=== PATIENT | male | born 1955 | race Caucasian/White ===

== ENCOUNTER 2017-03-29 16:14 | Observation (INO) ==
[2017-03-29] MEDS ORDERED: Nitroglycerin 0.4 MG TAB.SUBL SL PRN ×2 (16:28→20:17)
[2017-03-29] MEDS ORDERED: Aspirin 325 MG TABLET PO ONE (16:28)
--- NOTE | 2017-03-29 16:31 | Emergency Department Note ---
Disposition Clinical Impression: Chest pain Qualifiers: Chest pain type: unspecified Qualified Code(s): R07.9 - Chest pain, unspecified Dyspnea Qualifiers: Dyspnea type: unspecified Qualified Code(s): R06.00 - Dyspnea, unspecified Disposition: Admitted As Inpatient Condition: Undetermined Referrals: [place] [Primary Care Provider] - Forms: ED Satisfaction Letter Time of Disposition: 18:24 Chest Pain HPI - General Chief Complaint: ED Chest Pain Stated Complaint: Chest Pressure Time Seen by Provider: 03/29/17 16:21 Source: patient, family Mode of arrival: ambulatory Limitations: no limitations Vital Signs Reviewed: Yes Nursing Notes Reviewed: Yes - History of Present Illness HPI Narrative: 61-year-old male with history of TX, roughly 1 year ago, with cardiac catheter at that time arrives to [facility] emergency department complaining of chest pressure and associated dyspnea. The patient is a started 3 days ago and is acutely worsened. The patient states the sort of feels like his previous TX but states it is a little bit different. The patient has not been medications meaning that he does not take any of his medications for hypertension, hyperlipidemia, diabetes, statin, antiplatelet. The patient denies any other complaints at this time. He is experiencing chest discomfort at this time. Pt complaint: chest pain Onset (ago): day(s) (3) Duration: intermittent, gradually worsening Onset: during rest Pain Location: substernal, left chest Severity: moderate Severity scale (1-10): 7 Quality: tightness, heaviness Pain Radiation: LUE Improves with: nothing Worsens with: nothing Treatments prior to arrival chest pain: none - Related Data On Oral Contraceptives: No Home Medications Medication Instructions Recorded Confirmed Aspirin Enteric Coated [Aspirin EC] 81 mg PO DAILY 12/11/15 02/01/17 Furosemide [Lasix] 40 mg PO BID 12/11/15 02/01/17 Gabapentin [Neurontin] 800 mg PO QID 12/11/15 02/01/17 Insulin ASPART [NovoLOG] 70 unit SQ BID 12/11/15 02/01/17 Insulin DETEMIR [Levemir] 70 unit SQ BID 12/11/15 02/01/17 Lovastatin [Mevacor] 20 mg PO HS 03/28/16 02/01/17 Nitroglycerin [Nitrostat] 0.4 mg SL Q5M PRN 03/28/16 02/01/17 Furosemide [Lasix] 40 mg PO DAILY 02/01/17 02/01/17 Lisinopril [Zestril] 10 mg PO DAILY 02/01/17 02/01/17 Metoprolol [Lopressor] 25 mg PO BID 02/01/17 02/01/17 Previous Rx's Medication Instructions Recorded Clopidogrel [Plavix] 75 mg PO DAILY #30 tablet 03/29/16 Allergies Allergy/AdvReac Type Severity Reaction Status Date / Time No Known Allergies Allergy Verified 02/01/17 08:57 All systems ED: reviewed and negative except as stated. Constitutional: Denies: fever, chills, weakness, weight change Eyes: Denies: eye pain, eye discharge, vision change ENT ED: Denies: ear pain, throat pain, dental pain, hearing loss, epistaxis, congestion, dysphagia Cardiovascular: Reports: chest pain, dyspnea on exertion. Denies: palpitations , edema, syncope Respiratory: Reports: dyspnea. Denies: cough, wheezes, hemoptysis, stridor Gastrointestinal: Denies: abdominal pain, nausea, vomiting, diarrhea, constipation, hematemesis, melena, hematochezia Musculoskeletal: Denies: back pain, neck pain, arthralgia, myalgia Neurological: Denies: headache, weakness, numbness, paresthesias, confusion, abnormal gait, vertigo Chest Pain PMH - Past Medical History Medical history: Reports: COPD, diabetes, GERD, hyperlipidemia, hypertension Surgical history: Reports: appendectomy, cholecystectomy, herniorrhaphy, knee replacement, orthopedic, other Psychiatric history: Reports: no psych history Prior Cardiac Testing/Procedures: Stenting (1 year ago, 03/28/16) - Social History Smoking Status: Current every day smoker Alcohol use: Reports: none Drug use: Reports: none Physical Exam - General Limitations: no limitations General appearance: alert, in no apparent distress - Head Head exam: atraumatic, normocephalic, normal inspection - ENT ENT exam: normal exam, normal oropharynx, mucous membranes moist - Neck Neck exam: Present: normal inspection, full ROM, trachea midline - Chest Chest inspection: Present: normal inspection, symmetric chest wall rise - Respiratory Respiratory exam: Present: normal lung sounds bilaterally - Cardiovascular Cardiovascular exam: Present: normal rhythm, tachycardia, normal heart sounds - Abdominal Exam Abdominal exam: Present: soft, Non-Tender. Absent: tenderness, distention, guarding, rebound, rigidity - Extremities Exam Extremities exam: Present: normal inspection - Skin Skin exam: Present: other (H and a small abrasions on his right upper extremity and left knee from previous lawnmower accident. No active bleeding, no obvious signs of infection.) Course - Reevaluation(s) Reevaluation #1: She received 3 sublingual edger glycerin which appeared to decrease the patient' s blood pressure to 90 systolic. The patient was given 1 fluid bolus which jesus his blood pressure into the mid 100 teens. The patient was also noted to be slightly hypoxic on room air C was placed on 2 L nasal cannula which jesus his oxygen saturation into the mid 90s. The patient was slightly altered during this occurrence quickly became alert and oriented once again area and the patient is resting comfortably at this time answering all questions appropriately. The patient had an elevated d-dimer so at this time we will perform a CTA of the patient's chest. Currently awaiting results. Patient demonstrates no acute EKG changes or elevated troponin. The patient will likely be admitted to the hospital for ACS rule out. Time: 18:08 Vital Signs Temperature 97.6 F 03/29/17 16:17 Pulse Rate 98 03/29/17 16:17 Respiratory Rate 18 03/29/17 16:17 Blood Pressure 139/78 03/29/17 16:17 O2 Sat by Pulse Oximetry 93 03/29/17 16:17 Temperature 97.6 F 03/29/17 16:17 Pulse Rate 91 03/29/17 17:15 Respiratory Rate 16 03/29/17 17:15 Blood Pressure 117/77 03/29/17 17:15 O2 Sat by Pulse Oximetry 96 03/29/17 17:15 Oxygen Delivery Oxygen Delivery Nasal Cannula Chest Pain - MDM Narrative Medical decision making narrative: Patient's workup here in the emergency department demonstrates a mild leukocytosis. Addition the patient had an elevated d-dimer which a CTA of the chest was negative. EKG demonstrates no acute findings. Troponin is negative. No other acute findings noted. The patient did receive 2 L of fluids after receiving nitroglycerin and having a systolic drop into the 90s. The patient was mildly altered during that transient episode of hypotension but quickly jesus back up to the 1 teens. In addition the patient is now alert and oriented 3 and answering all questions appropriate. The patient is resting comfortably at this time. Discussion with the patient about admission and he agrees to plan. We will admit the patient at this time. Ishaan Du NP, accepted patient for admission. Requested bilateral Doppler of lower extremity. We will order this at this time. We will send the patient up to the floor. - Medical Records Medical records reviewed: Yes I reviewed the patient's medical records. - Lab Data Lab results reviewed: Yes I reviewed the patient's lab results. Result diagrams: 03/29/17 16:33 03/29/17 16:33 Lab Results 03/29/17 03/29/17 03/29/17 Range/Units 16:33 16:33 16:33 WBC 16.5 H (4.3-11.1) K/mcL RBC 6.19 H (4.19-5.50) M/mcL Hgb 17.3 H (12.9-16.9) g/dL Hct 50.4 H (37.5-50.1) % MCV 81.4 L (83.0-100.0) fL MCH 27.9 L (28.0-33.3) pg MCHC 34.3 (31.6-35.5) g/dL RDW 13.5 (11.5-14.5) % Plt Count 442 H (140-400) K/mcL MPV 10.2 (9.4-12.4) fL Immature Gran % 1.9 (0-4) % Seg Neutrophils % 74.4 % Lymphocytes % 13.0 % Monocytes % 6.7 % Eosinophils % 2.8 % Basophils % 1.2 % Neutrophils # 12.3 H (1.6-8.9) K/mcL Lymphocytes # 2.1 (0.6-4.6) K/mcL Monocytes # 1.1 (0.0-1.3) K/mcL Eosinophils # 0.5 (0.0-0.6) K/mcL Basophils # 0.2 (0.0-0.2) K/mcL D-Dimer 1047 H (0-500) ng/mLFEU Sodium 137 (136-145) mEq/L Potassium 3.9 (3.5-4.5) mEq/L Chloride 103 (98-109) mEq/L Carbon Dioxide 23 (19-29) mEq/L BUN 15 (8-26) mg/dL Creatinine 0.98 (0.72-1.25) mg/dL Est GFR ( Amer) > 60 (> 60) Est GFR (Non-Af Amer) > 60 (> 60) BUN/Creatinine Ratio 15 (6-26) Glucose 165 H (70-99) mg/dL Calculated Osmolality 289 (280-300) Calcium 9.6 (8.6-10.8) mg/dL Troponin I (0-0.03) ng/mL 03/29/17 Range/Units 16:33 WBC (4.3-11.1) K/mcL RBC (4.19-5.50) M/mcL Hgb (12.9-16.9) g/dL Hct (37.5-50.1) % MCV (83.0-100.0) fL MCH (28.0-33.3) pg MCHC (31.6-35.5) g/dL RDW (11.5-14.5) % Plt Count (140-400) K/mcL MPV (9.4-12.4) fL Immature Gran % (0-4) % Seg Neutrophils % % Lymphocytes % % Monocytes % % Eosinophils % % Basophils % % Neutrophils # (1.6-8.9) K/mcL Lymphocytes # (0.6-4.6) K/mcL Monocytes # (0.0-1.3) K/mcL Eosinophils # (0.0-0.6) K/mcL Basophils # (0.0-0.2) K/mcL D-Dimer (0-500) ng/mLFEU Sodium (136-145) mEq/L Potassium (3.5-4.5) mEq/L Chloride (98-109) mEq/L Carbon Dioxide (19-29) mEq/L BUN (8-26) mg/dL Creatinine (0.72-1.25) mg/dL Est GFR ( Amer) (> 60) Est GFR (Non-Af Amer) (> 60) BUN/Creatinine Ratio (6-26) Glucose (70-99) mg/dL Calculated Osmolality (280-300) Calcium (8.6-10.8) mg/dL Troponin I 0.00 (0-0.03) ng/mL - Radiology Data Radiology results reviewed: Yes I reviewed the patient's radiology results. - EKG Data EKG attestation: Yes I reviewed and interpreted this EKG. EKG results narrative: Heart rate 99 bpm. WA interval 159 ms. QTC 394 ms. Normal axis. Normal sinus rhythm. No ST elevation or ST depression noted. EKG similar appearance to EKG from 04/27/2016.
[2017-03-29 16:43] LABS: Basophils # 0.2 K/mcL (0.0-0.2); Basophils % 1.2 %; Eosinophils # 0.5 K/mcL (0.0-0.6); Eosinophils % 2.8 %; Hematocrit 50.4 % (37.5-50.1); Hemoglobin 17.3 g/dL (12.9-16.9); Immature Granulocytes % 1.9 % (0-4); Lymphocytes # 2.1 K/mcL (0.6-4.6); Mean Corpuscular HGB Conc 34.3 g/dL (31.6-35.5); Mean Corpuscular Hemoglobin 27.9 pg (28.0-33.3); Mean Corpuscular Volume 81.4 fL (83.0-100.0); Mean Platelet Volume 10.2 fL (9.4-12.4); Monocytes # 1.1 K/mcL (0.0-1.3); Monocytes % 6.7 %; Neutrophils # 12.3 K/mcL (1.6-8.9); Platelet Count 442 K/mcL (140-400); Red Blood Count 6.19 M/mcL (4.19-5.50); Red Cell Distribution Width 13.5 % (11.5-14.5); Segmented Neutrophils % 74.4 %
[2017-03-29] MEDS ORDERED: 0.9 % Sodium Chloride 1,000 ML IVC ONE ×2 (16:51→17:35)
[2017-03-29] MEDS ORDERED: 0.9 % Sodium Chloride 1,000 ML ONE (16:52)
[2017-03-29 17:03] LABS: BUN/Creatinine Ratio 15 (6-26); Blood Urea Nitrogen 15 mg/dL (8-26); Calcium 9.6 mg/dL (8.6-10.8); Carbon Dioxide 23 mEq/L (19-29); Chloride 103 mEq/L (98-109); Glucose 165 mg/dL (70-99); Osmolality,Calculated 289 (280-300); Potassium 3.9 mEq/L (3.5-4.5); Sodium 137 mEq/L (136-145); eGFR For African Americans > 60 (> 60); eGFR For Non-African Americans > 60 (> 60)
--- NOTE | 2017-03-29 17:06 | Emergency Department Note ---
START Narrative - START START: I examined this patient and my medical decision-making was reviewed with the Resident Physician. I agree with the documented findings, disposition and treatment plan as described except to the extent set forth below. 61-year-old male presents emergency room for chest pressure. Onset 3 days ago. Worse today. Admits to some shortness of breath. Positive risk factors. Denies history of CHF. Denies any significant new leg swelling. Patient received 1 nitroglycerin and became hypotensive. His blood pressure went to the 80s systolic. We have ordered some IV fluid bolus. EKG was normal sinus rhythm. No signs of ischemia. Will workup from an ACS standpoint.
[2017-03-29] MEDS ORDERED: Acetaminophen 325 MG TABLET PO PRN (20:02)
[2017-03-29] MEDS ORDERED: *HR* HYDROcodone/Acet 5/325 mg TABLET PO PRN (20:02)
[2017-03-29] MEDS ORDERED: Naloxone 0.4 MG/ML INJ IVP PRN (20:02)
[2017-03-29] MEDS ORDERED: Ondansetron 4 MG/2 ML VIAL IVP PRN (20:02)
[2017-03-29] MEDS ORDERED: *HR* Morphine 2 MG/ML SYRINGE IVP PRN (20:02)
[2017-03-29] MEDS ORDERED: Benzonatate 100 MG CAPSULE PO PRN (20:12)
[2017-03-29] MEDS ORDERED: *HR* Dextrose 50 % in Water (Syg) 50 ML SYRINGE IVP PRN (20:27)
[2017-03-29] MEDS ORDERED: D5% in Water 1,000 ML IVC PRN (20:27)
[2017-03-29] MEDS ORDERED: Dextrose Gel 15 GM PO PRN ×2 (20:27)
--- NOTE | 2017-03-29 20:33 | Internal Med History&Physical ---
<RuthseayueIshaan cortez - Last Filed: 03/29/17 21:14> Date of Encounter: 03/29/17 Time of Encounter: 19:00 Assessment and Plan (1) Chest pain Current visit: Yes Status: Acute Patient reports acute chest pain for the past three days that is centralized in his chest, a constant pressure, and is worse with deep inspiration. 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 No recent cardiac work-up. initial troponin 0.00. EKG today shows normal sinus rhythm and normal ECG which is unchanged from ECG of 03/28/16. Continuous cardiac telemetry. Trend troponin x2. Echocardiogram ordered. Patient NPO @ midnight for nuclear pharm stress test tomorrow. Nitroglycerin PRN. Continue patient's PO Plavix and 81 mg aspirin therapy daily. Consider cardiology consult based on echo and stress results. Qualifiers: Chest pain type: unspecified Qualified Code(s): R07.9 - Chest pain, unspecified (2) COPD exacerbation Current visit: Yes Status: Acute Patient presents with SOB w/wo exertion and hx of tobacco abuse smoking 1.5 PPD. Patient reports chest pain that is worse with inspiration. Bilateral wheezes on auscultation and productive cough. Patient reports home O2 use. IVPB azithromycin 500 mg daily for infection coverage. Supplemental O2 w/titration if SpO2 <92% and continuous SpO2 monitoring. DuoNebs Q4 scheduled. Tessalon 100 mg TID PO. Solumedrol 40 mg IVP BID. Monitor patient's respiratory status and VS. Falls/safety precautions d/t SOB. (3) Leukocytosis Current visit: Yes Status: Acute WBC of 16.5 on admission. Patient asymtomatic and afebrile except for productive cough with report of green sputum. IVPB azithromycin 500 mg daily ordered for infection coverage. Monitor f/u labs. Sputum culture and blood cultures x2 ordered. Urine culture ordered. Qualifiers: Leukocytosis type: unspecified Qualified Code(s): D72.829 - Elevated white blood cell count, unspecified (4) Dyspnea Current visit: Yes Status: Acute Presents with acute dyspnea w/wo exertion. Reports pain on inspiration and cough with green sputum production. Supplemental O2 w/titration if SpO2 <92%. Continuous SpO2 monitoring. DuoNebs Q4 scheduled. Tessalon 100 mg TID for cough. Sputum culture ordered. Solumedrol 40 mg IVP BID. Falls/safety precautions. Qualifiers: Dyspnea type: unspecified Qualified Code(s): R06.00 - Dyspnea, unspecified (5) Tobacco abuse counseling Current visit: Yes Status: Acute Patient counseled >10 minutes regarding the dangers of continued tobacco abuse on health status as well as successful measures for quitting. Reports smoking 1.5 PPD. Patient declined nicotine patch at this time. (6) GERD (gastroesophageal reflux disease) Current visit: Yes Status: Chronic Hx of chronic esophageal reflux disease. Patient reports using OTC products. IVP Zofran Q6 PRN for nausea. IVP Protonix 40 mg BID ordered. Qualifiers: Esophagitis presence: esophagitis presence not specified Qualified Code(s) : K21.9 - Gastro-esophageal reflux disease without esophagitis (7) Diabetes Current visit: Yes Status: Chronic Hx of chronic diabetes with insulin dependency. Will continue patient's BID insulin and administer low-dose correction insulin sliding scale with hypoglycemic protocol. A1c ordered in a.m. labs. Diabetic diet. Diabetes education consult ordered. Qualifiers: Diabetes mellitus type: type 2 Diabetes mellitus complication status: with unspecified complications Diabetes mellitus extermination supervisor insulin use: with extermination supervisor use Qualified Code(s): E11.8 - Type 2 diabetes mellitus with unspecified complications; Z79.4 - extermination supervisor (current) use of insulin (8) HLD (hyperlipidemia) Current visit: Yes Status: Chronic Hx of chronic HLD. Lipid panel ordered in a.m. labs. Continue patient's lovastatin. Qualifiers: Hyperlipidemia type: pure hypercholesterolemia Qualified Code(s): E78.00 - Pure hypercholesterolemia, unspecified; E78.0 - Pure hypercholesterolemia (9) HTN (hypertension) Current visit: Yes Status: Chronic Monitor patient and VS. Continue lisinopril and Lopressor. Qualifiers: Hypertension type: essential hypertension Qualified Code(s): I10 - Essential (primary) hypertension (10) CAD (coronary artery disease) Current visit: Yes Status: Chronic History of CAD and VT in 2016 with placement of 1 stent in the widowmaker. Will continue patient's lisinopril, Lopressor, lovastatin. Continuous cardiac telemetry. Continue 81 mg aspirin and Plavix. Qualifiers: Coronary Disease-Associated Artery/Lesion type: [place] artery [place] vs. transplanted heart: [place] heart Associated angina: without angina Qualified Code(s): I25.10 - Atherosclerotic heart disease of [place] coronary artery without angina pectoris (11) DVT prophylaxis Current visit: Yes Status: Acute Heparin 5,000 units SQ Q8 ordered. Continue patient's 81 mg aspirin therapy and Plavix. Internal Medicine - H&P: HPI Chief complaint: Chest pain Admitted From: Emergency Dept Plans for Post Hospital Care: Home History of present illness: Mr. Greco is a 61 year old male with medical history COPD, diabetes with insulin dependency, GERD, hyperlipidemia, hypertension, and previous VT in 2016 with placement of one stent presents from the ED with chief complaint of chest pain that he reports has been occurring for the past 3 days and he describes as constant pressure in his central chest which becomes worse with inspiration. Patient also reports dizziness and shortness of breath but denies recent illness , nausea, vomiting, fever, chills, headache, changes in vision, abdominal pain, diarrhea, constipation, unusual bleeding, weakness, numbness, tingling, presyncope, or syncope. On admission, patient's vital signs include temperature 97.6F, heart rate 90 bpm, respiratory rate of 18, BP of 139/78, SPO2 93% on 2 L via nasal cannula. Pertinent abnormal labs include WBC of 16.5 , Hgb of 17.3, HCT 50.4, platelet count of 442, d-dimer 1047, and glucose of 165. Initial troponin 0.00. Initial concern was for possible PE due to patient 's shortness of breath and chest pain, however CTA of the chest today shows no acute pulmonary emboli, mild atherosclerosis with no aortic dissection, and no acute pulmonary process. 1-View CXR shows no acute pulmonary process. Upon assessment, patient is alert and oriented 3 and states he has mild chest discomfort with inspiration. Heart rate is RRR and lungs have bilateral wheezes on auscultation. Patient is hemodynamically stable and reports mild chest distress and dyspnea. Patient also has cough but he states produces green sputum. Information taken from patient, family, chart review, and previous medical records. Mr. greco is at high risk for further morbidity based on current symptoms of chest pain, elevated WBC; risk factors of previous VT, HLD, and HTN; and history and will be replaced as observation status. Time spent with patient and his family greater than 40 minutes. Past Med Surg Social Fam HX - Past Medical History Source: patient, old records reviewed, obtained from family Medical history: COPD, diabetes, GERD, hyperlipidemia, hypertension Psychiatric history: no psych history - Past Surgical History Surgical History: appendectomy, cholecystectomy, herniorrhaphy, knee replacement , orthopedic, other - Social History Smoking Status: Current every day smoker Packs per day: 1.5 PPD Smokeless Tobacco Status: No Alcohol use: none Drug use: none Current living situation: Home, With Family Activity Level: Independent ambulation Recent Out of Country Travel Within the Last 8 Weeks: No Exposure or Possible Exposure to Illness During Travel: No - Family History Father Race: Family Member Ethnicity: Non- Living Status: Age at : 82 Cause of : CAD Hx Family Cardiac Disorders: Yes (HTN, CAD) Hx Family Endocrine Disorder: Yes (DM) Mother Race: Family Member Ethnicity: Non- Living Status: Age at : 50 Cause of : Brain tumor Hx Family Cancer: Yes (Brain tumor) Brother History Unknown: Yes Race: Family Member Ethnicity: Non- Living Status: Still Living Sister History Unknown: Yes Race: Family Member Ethnicity: Non- Living Status: Still Living Internal Medicine - H&P: Meds Aspirin Enteric Coated [Aspirin EC] 81 mg PO DAILY 12/11/15 [History] Gabapentin [Neurontin] 800 mg PO QID 12/11/15 [History] Insulin ASPART [NovoLOG] 70 unit SQ BID 12/11/15 [History] Insulin DETEMIR [Levemir] 70 unit SQ BID 12/11/15 [History] Lovastatin [Mevacor] 20 mg PO HS 03/28/16 [History] Nitroglycerin [Nitrostat] 0.4 mg SL Q5M PRN 03/28/16 [History] Clopidogrel [Plavix] 75 mg PO DAILY #30 tablet 03/29/16 [Rx] Furosemide [Lasix] 40 mg PO DAILY 02/01/17 [History] Lisinopril [Zestril] 10 mg PO DAILY 02/01/17 [History] Metoprolol [Lopressor] 25 mg PO BID 02/01/17 [History] Cyanocobalamin (Vitamin B-12) [Vitamin B12] 1,000 mcg PO DAILY 03/29/17 [History ] [place]-3/Dha/Epa/Fish Oil [Fish Oil 1,000 mg Softgel] 1,000 mg PO DAILY 03/29/17 [History] 3 Allergy/AdvReac Type Severity Reaction Status Date / Time No Known Allergies Allergy Verified 02/01/17 08:57 All Systems PM: A 10-system review of systems was performed and is negative for pertinent findings except as documented above in the HPI. - Constitutional Constitutional: as per HPI, fatigue, weight loss, no chills, no fever(s), no night sweats Additional comments: Patient reports unintended weight loss of 32 pounds over the past 1-2 months with no change in appetite or eating habits. - EENT Eyes: no change in vision, no discharge, no pain, no photophobia Ears: no ear discharge, no ear pain, no tinnitus Nose, mouth and throat: no dysphagia, no nasal discharge, no neck pain, no sore throat - Breasts Breasts: as per HPI - Cardiovascular Cardiovascular ROS IM: as per HPI, chest pain, dyspnea, dyspnea on exertion, other (Dizziness) - Respiratory Respiratory: as per HPI, cough, dyspnea, dyspnea on exertion, wheezing, pain on inspiration, change in phlegm color - Gastrointestinal Gastrointestinal: no abdominal pain, no diarrhea, no hematemesis, no hematochezia, no melena, no nausea, no vomiting - Genitourinary Genitourinary ROS male: as per HPI - Musculoskeletal Musculoskeletal ROS IM: no numbness, no tingling - Integumentary Integumentary IM: no rash, no unusual bruising - Neurological Neurological ROS: no confusion, no convulsions, no focal weakness, no numbness, no tingling, no tremor(s) - Psychiatric Psychiatric: as per HPI - Endocrine Endocrine IM: as per HPI - Hematologic/Lymphatic Hematologic/Lymphatic: no easy bruising - Allergic/Immunologic Allergic/Immunologic: as per HPI - Constitutional Vitals: Temp Pulse Resp BP Pulse Ox 98.0 F 87 16 117/72 95 03/29/17 20:12 03/29/17 20:12 03/29/17 20:12 03/29/17 20:12 03/29/17 20:12 General appearance: Present: cooperative, mild distress, A&O X 3, morbidly obese , pleasant, answers questions appropriately - Head Head exam: Present: atraumatic, normocephalic - Eye Eye exam: Present: PERRL, conjuntiva pink, sclera anicteric Pupils: Present: PERRL - ENT ENT exam: Present: normal exam, normal external ear exam - Neck Neck exam general surgery: Present: normal inspection, supple, trachea midline. Absent: lymphadenopathy - Respiratory Respiratory exam: Present: accessory muscle use, wheezes - Cardiovascular Cardiovascular exam: Present: RRR, +S1, +S2. Absent: diastolic murmur, gallop, rubs, systolic murmur - GI/Abdominal GI/Abdominal exam: Present: normal bowel sounds, soft, no peritoneal signs. Absent: distended, tenderness - Rectal Rectal exam: Present: deferred - Additional comments: exam deferred. - Extremities Exam Extremities exam: Present: warm, radial pulses palpable and symmetrical. Absent : calf tenderness, cyanotic, pedal edema - Back Exam Back exam: Present: normal inspection - Neurological Exam Neurological exam: Present: CN II-XII intact, oriented X3, no focal deficits. Absent: pronater drift, facial droop, speech deficit - Psychiatric Psychiatric exam: Present: normal affect, normal mood - Skin Skin exam: Present: dry, intact Internal Med - H&P Results - Labs CBC & Chem 7: 03/29/17 16:33 03/29/17 16:33 - EKG Data EKG shows normal: sinus rhythm Rate: normal - EKG Data Prior EKG available for review: yes When compared to previous EKG: there is no significant change Interpretation IM: normal EKG EKG comments: 03/29/17 20:44 EKG dated 03/28/16 shows sinus rhythm. EKG dated 03/29/17 shows sinus rhythm and normal ECG. - Diagnostic Studies Chest x-ray Additional comments: Impressions Chest X-Ray 03/29/17 16:26 IMPRESSION: No acute pulmonary process. D/ / Man Thrasher / Man Thrasher Interpreting Provider: Man Thrasher Chest CTA 03/29/17 17:35 IMPRESSION: 1. No acute pulmonary emboli. 2. Mild atherosclerosis with no aortic dissection. 3. No acute pulmonary process. D/ / 03/29/2017 18:06:08 Twan Reddy MD / bobby Interpreting Provider: Twan Reddy MD Other Images Additional comments: Impressions Chest CTA 03/29/17 17:35 IMPRESSION: 1. No acute pulmonary emboli. 2. Mild atherosclerosis with no aortic dissection. 3. No acute pulmonary process. D/ / 03/29/2017 18:06:08 Twan Reddy MD / bobby Interpreting Provider: Twan Reddy MD <Margi Caldwell - Last Filed: 03/29/17 21:22> Date of Encounter: 03/29/17 Internal Medicine - H&P: HPI History of present illness: Mr. Greco is a 61 year old male All Systems PM: A 10-system review of systems was performed and is negative for pertinent findings except as documented above in the HPI. - Constitutional Vitals: Temp Pulse Resp BP Pulse Ox 98.0 F 87 17 117/72 94 03/29/17 20:12 03/29/17 20:12 03/29/17 20:37 03/29/17 20:12 03/29/17 20:37 Internal Med - H&P Results - Labs CBC & Chem 7: 03/29/17 16:33 03/29/17 16:33 - Attending Attestation I have personally performed a face to face evaluation on this patient. I have reviewed and agree with the care plan. History and Exam by me shows: 61-year-old gentleman who presents with chest pain evaluation. Also has very very mild COPD exacerbation. He smokes a pack and a half of cigarettes per day, uses room air at baseline, uses CPAP daily at bedtime for sleep apnea. He presents with 3 day history of worsening chest pressure described as a break on his chest. I risk factors include diabetes history of heart attack a year ago and had stent placement. Seen by Dr. Jackson. EKG reviewed personally with normal sinus rhythm rate of 99 CT/CT angio chest IMPRESSION: 1. No acute pulmonary emboli. 2. Mild atherosclerosis with no aortic dissection. 3. No acute pulmonary process. General - AAO x 3 Psych - Appropriate affect/speech. No agitation Eyes - [place]. Eye lids intact. No scleral icterus Heart - Sinus. RRR. S1 and S2 present. No added HS/murmurs appreciated. No elevated JVD appreciated. Lung - Adequate air entry b/l, very scant wheeze, no crackles GI - Soft, non-tender. No hepatosplenomegaly/ascites. BS+ - No CVA/suprapubic tenderness or palpable bladder distension Skin - Intact. No rash/petechiae/ecchymosis. Warm extremities Assessment and plan Given high risk clinic history and clinical presentation with plan for a stress test Empiric treatment for mild acute bronchitis. Short course pulse steroids, azithro, duonebs. Anticipate ability to de-escalate quickly
[2017-03-29] MEDS: Ipratropium/Albuterol Neb 3 ML IH SCH ×2 (20:37→23:39)
[2017-03-29] MEDS ORDERED: INSULIN ASPART 70 UNIT SQ SCH (21:00)
[2017-03-29] MEDS ORDERED: Insulin LISPRO 300 UNITS/3 ML VIAL SQ SCH (21:00)
[2017-03-29] MEDS: Insulin DETEMIR 100 UNIT/ML X5UNITS SQ SCH (22:10)
[2017-03-29] MEDS: Azithromycin 500 MG in D5% in Water 250 ML IVPB SCH (22:11)
[2017-03-29] MEDS: Gabapentin 400 MG CAPSULE PO SCH (22:12)
[2017-03-29] MEDS: Pantoprazole 40 MG VIAL IVP SCH (22:12)
[2017-03-29] MEDS: *HR* Heparin 5,000 UNIT/ML VIAL SQ SCH (22:12)
[2017-03-30] MEDS: Ipratropium/Albuterol Neb 3 ML IH SCH ×6 (03:04→23:11)
[2017-03-30 03:15] LABS: Bilirubin,Urine Negative (Negative); Blood,Urine Negative (Negative); Clarity,Urine Clear (Clear); Color,Urine Yellow (Yellow); Glucose,Urine (UA) >=1000 mg/dL (Normal); Ketones,Urine Negative (Negative); Leukocyte Esterase,Urine Negative (Negative); Nitrite,Urine Negative (Negative); Protein,Urine Negative (Neg-Trace); Specific Gravity,Urine > 1.030 (1.010-1.025); Urobilinogen,Urine Normal (Normal)
[2017-03-30 04:58] LABS: Basophils # 0.1 K/mcL (0.0-0.2); Basophils % 1.2 %; Eosinophils # 0.4 K/mcL (0.0-0.6); Eosinophils % 3.5 %; Hematocrit 43.9 % (37.5-50.1); Immature Granulocytes % 1.5 % (0-4); Lymphocytes # 2.1 K/mcL (0.6-4.6); Lymphocytes % 17.8 %; Mean Corpuscular HGB Conc 34.4 g/dL (31.6-35.5); Mean Corpuscular Hemoglobin 28.2 pg (28.0-33.3); Mean Corpuscular Volume 81.9 fL (83.0-100.0); Mean Platelet Volume 10.4 fL (9.4-12.4); Monocytes # 0.7 K/mcL (0.0-1.3); Monocytes % 6.1 %; Neutrophils # 8.2 K/mcL (1.6-8.9); Platelet Count 351 K/mcL (140-400); Red Blood Count 5.36 M/mcL (4.19-5.50); Red Cell Distribution Width 13.6 % (11.5-14.5); Segmented Neutrophils % 69.9 %
[2017-03-30 05:03] LABS: Prothrombin Time 10.9 Seconds (9.4-12.1)
[2017-03-30 05:04] LABS: Hemoglobin 15.1 g/dL (12.9-16.9)
[2017-03-30 05:06] LABS: Activated Partial Thrombo Time 28.1 Seconds (26.0-36.0)
[2017-03-30 05:11] LABS: Hemoglobin A1C 10.8 %
[2017-03-30 05:21] LABS: Alanine Aminotransferase 20 Units/L (0-55); Albumin 3.1 g/dL (3.5-5.0); Alkaline Phosphatase 103 Units/L (38-126); Aspartate Amino Transferase 13 Units/L (5-34); BUN/Creatinine Ratio 18 (6-26); Bilirubin,Total 0.2 mg/dL (0.2-1.2); Blood Urea Nitrogen 15 mg/dL (8-26); Calcium 8.6 mg/dL (8.6-10.8); Carbon Dioxide 20 mEq/L (19-29); Chloride 107 mEq/L (98-109); Chol/HDL Ratio 8.2 (0-4.9); Cholesterol 163 mg/dL (< 200); Glucose 300 mg/dL (70-99); HDL Cholesterol 20 mg/dL (40-59); Magnesium 1.6 mg/dL (1.6-2.6); Osmolality,Calculated 296 (280-300); Potassium 3.9 mEq/L (3.5-4.5); Sodium 137 mEq/L (136-145); Total Protein 6.1 g/dL (6.0-8.3); Triglycerides 489 mg/dL (< 150); eGFR For African Americans > 60 (> 60); eGFR For Non-African Americans > 60 (> 60)
[2017-03-30] MEDS: *HR* Heparin 5,000 UNIT/ML VIAL SQ SCH ×3 (05:55→22:51)
[2017-03-30] MEDS: MethylPREDNISolone 40 MG/ML VIAL IVP SCH ×2 (05:55→18:13)
[2017-03-30] MEDS ORDERED: Regadenoson 0.4 MG/5 ML SYRINGE IVP ONE (06:15)
[2017-03-30] MEDS ORDERED: Perflutren Lipid Microsphere 1.3 ML in 0.9 % Sodium Chloride 8.7 ML IVP ONE (06:39)
[2017-03-30] MEDS: Pantoprazole 40 MG VIAL IVP SCH ×2 (10:18→20:49)
[2017-03-30] MEDS: Gabapentin 400 MG CAPSULE PO SCH ×2 (10:18→12:06)
[2017-03-30] MEDS: Furosemide 40 MG TABLET PO SCH (10:18)
[2017-03-30] MEDS: Aspirin Enteric Coated 81 MG Tablet PO SCH (10:18)
[2017-03-30] MEDS: Cyanocobalamin (B-12) 1,000 MCG TABLET PO SCH (10:18)
[2017-03-30] MEDS: Insulin LISPRO 300 UNITS/3 ML VIAL SQ SCH ×3 (10:18→18:09)
[2017-03-30] MEDS: Insulin DETEMIR 100 UNIT/ML X5UNITS SQ SCH ×2 (10:40→22:52)
--- NOTE | 2017-03-30 14:29 | Venous Imaging Report ---
LE Venous Duplex Patient Name:Rafa De Paz Order Number:[id number] Procedure Date:03/29/2017 Date:8Age:61 yrs Gender:Male Location:[facility] Room #: [id number] Cement Car Dumper:Acacia Vines RDCS, RVT Referring MD:DO Humberto Qiu MD:Pato Ramsey MD , FACS Primary Indications:Concern for DVT Secondary Indications: Risk Factors Yes/No Anticoagulants Yes Impressions: Bilateral lower extremity: normal superficial and deep exam. Findings Venous Duplex Results: Right: Venous imaging of the lower extremity reveals full patency and normal vessel compressibility of the right distal iliac, right common femoral, right superficial femoral, right popliteal, right posterior tibial, right peroneal, right great saphenous and right lesser saphenous. Doppler signals in the evaluated veins were normal. Left: Venous imaging of the lower extremity reveals full patency and normal vessel compressibility of the left distal iliac, left common femoral, left superficial femoral, left popliteal, left posterior tibial, left peroneal, left great saphenous and left lesser saphenous. Doppler signals in the evaluated veins were normal. Prior Study: No prior study available for comparison. Lower Extremity Venous Duplex Side Vein Compress Spontaneous Flow Augment Diameter (cm) Depth (cm) Right Distal Iliac Normal Yes Phasic Yes Right Common Femoral Normal Yes Phasic Yes Right Superficial Femoral Normal Yes Phasic Yes Right Popliteal Normal Yes Phasic Yes Right Posterior Tibial Normal Yes Phasic Yes Right Peroneal Normal Yes Phasic Yes Right Great Saphenous Normal Yes Phasic Yes Right Lesser Saphenous Normal Yes Phasic Yes Left Distal Iliac Normal Yes Phasic Yes Left Common Femoral Normal Yes Phasic Yes Left Superficial Femoral Normal Yes Phasic Yes Left Popliteal Normal Yes Phasic Yes Left Posterior Tibial Normal Yes Phasic Yes Left Peroneal Normal Yes Phasic Yes Left Great Saphenous Normal Yes Phasic Yes Left Lesser Saphenous Normal Yes Phasic Yes Updated by Pato Ramsey MD, FACS on 03/30/2017 2:23:51 PM Pato Ramsey MD electronically signed on 03/30/2017 2:24:08 PM with status of Final
--- NOTE | 2017-03-30 17:30 | Internal Med Progress Note ---
Date of Encounter: 03/30/17 Time of Encounter: 15:45 - Assessment and plan (1) Chest pain Current Visit: Yes Status: Acute Assessment and plan: Patient reports acute chest pain for 3 days prior to arrival. He reports it is midsternal constant pressure, worse with deep inspiration. He also reports productive cough with green/yellow sputum. Chest x-ray is negative. Chest is CTA was negative for acute PE. Noted was mild atherosclerosis with with no aortic dissection and no acute pulmonary process. Patient had venous Dopplers of both lower extremities that were normal. Echocardiogram showed LVEF of 55% with normal systolic function, normal diastolic function with no significant valvular dysfunction. Cardiac stress test is not available at this time. Patient is receiving Solu-Medrol, Tessalon Perles, breathing treatments, and Tessalon Perles. I believe that the chest pain is primarily due to COPD exacerbation. Continue telemetry Continue pulse ox Continue O2 as needed, titrate to maintain sats greater than 92%. Continue IV antibiotics and steroids. Stress test results are pending, consider cardiology consult based on results. Qualifiers: Chest pain type: unspecified Qualified Code(s): R07.9 - Chest pain, unspecified (2) CAD (coronary artery disease) Current Visit: Yes Status: Chronic Assessment and plan: Patient denies chest pain at this time. Continue aspirin, Plavix, beta ruben. Continue telemetry. Qualifiers: Coronary Disease-Associated Artery/Lesion type: [place] artery [place] vs. transplanted heart: [place] heart Associated angina: without angina Qualified Code(s): I25.10 - Atherosclerotic heart disease of [place] coronary artery without angina pectoris (3) GERD (gastroesophageal reflux disease) Current Visit: Yes Status: Chronic Assessment and plan: Chronic. Patient is currently getting Protonix IV. He does not have any PPI or other GERD medication on his home medication list. Qualifiers: Esophagitis presence: esophagitis presence not specified Qualified Code(s) : K21.9 - Gastro-esophageal reflux disease without esophagitis (4) Leukocytosis Current Visit: Yes Status: Acute Assessment and plan: Improving. 11.7. Continue to monitor labs and vitals. Pt is receiving IV antibiotics, as well as IV steroids. Pt is afebrile, no tachycardia, and lactic acid is 1.1. Qualifiers: Leukocytosis type: unspecified Qualified Code(s): D72.829 - Elevated white blood cell count, unspecified (5) Diabetes Current Visit: Yes Status: Chronic Assessment and plan: A1c 10.8. Uncontrolled. Pt is non-compliant with most of his medications. Pt would benefit from outpatient diabetes education. I have put in a consult to nutrition. 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 Continue statin. Qualifiers: Hyperlipidemia type: pure hypercholesterolemia Qualified Code(s): E78.00 - Pure hypercholesterolemia, unspecified; E78.0 - Pure hypercholesterolemia (7) HTN (hypertension) Current Visit: Yes Status: Chronic Assessment and plan: Well controlled. continue home medication regimen. Qualifiers: Hypertension type: essential hypertension Qualified Code(s): I10 - Essential (primary) hypertension (8) DVT prophylaxis Current Visit: Yes Status: Acute Assessment and plan: Heparin SQ. (9) Non compliance w medication regimen Current Visit: Yes Status: Acute Assessment and plan: Pt states that he often gets busy in the a.m. and does not remember or care enough to take his medications. states that he has not taken his Plavix for several weeks. A1c in uncontrolled at 10.8 and pt states that he is not adherent to diet. Complete education. - Time Spent With Patient less than 15 minutes - Subjective Interval history: Pt was seen and assessed at 1545. He reports continued pain from coccyx fracture. He denies chest pain or dizziness at this time. He complains of cough with yellow/green sputum. Denies fever, chills, [place], or n/v/d. - Constitutional Vitals: Temp Pulse Resp BP Pulse Ox 97.7 F 81 16 118/66 98 03/30/17 15:14 03/30/17 15:14 03/30/17 16:09 03/30/17 15:14 03/30/17 16:09 General appearance: Present: cooperative, mild distress, A&O X 3, morbidly obese , pleasant, no acute distress, answers questions appropriately - Head Head exam: Present: atraumatic, normal inspection, normocephalic - Eye Eye exam: Present: normal appearance, conjuntiva pink, sclera anicteric - Neck Neck exam general surgery: Present: supple, trachea midline. Absent: lymphadenopathy - Respiratory Respiratory exam: Present: decreased breath sounds, CTAB. Absent: accessory muscle use, chest wall tenderness, rales, respiratory distress, rhonchi, wheezes - Cardiovascular Cardiovascular exam: Present: RRR, +S1, +S2. Absent: diastolic murmur, gallop, rubs, systolic murmur - GI/Abdominal GI/Abdominal exam: Present: normal bowel sounds, soft, no peritoneal signs. Absent: distended, tenderness - Extremities Exam Extremities exam: Present: normal inspection, warm, radial pulses palpable and symmetrical. Absent: calf tenderness, cyanotic, pedal edema, tenderness - Neurological Exam Neurological exam: Present: alert, oriented X3, no focal deficits. Absent: facial droop, speech deficit - Skin Skin exam: Present: dry, intact, normal color, warm. Absent: rash Internal Medicine: Result - Labs CBC & Chem 7: 03/30/17 04:44 03/30/17 04:44 Labs: Short CBC 03/30/17 Range/Units 04:44 WBC 11.7 H (4.3-11.1) K/mcL Hgb 15.1 D (12.9-16.9) g/dL Hct 43.9 (37.5-50.1) % Plt Count 351 (140-400) K/mcL Neutrophils # 8.2 (1.6-8.9) K/mcL BMP 03/30/17 04:44 Sodium 137 Potassium 3.9 Chloride 107 Carbon Dioxide 20 BUN 15 Creatinine 0.84 Glucose 300 H Calcium 8.6 Cardiac Enzymes 03/29/17 03/30/17 Range/Units 22:50 04:44 Troponin I 0.00 0.00 (0-0.03) ng/mL Liver Function 03/30/17 Range/Units 04:44 Total Bilirubin 0.2 (0.2-1.2) mg/dL AST 13 (5-34) Units/L ALT 20 (0-55) Units/L Alkaline Phosphatase 103 (38-126) Units/L Albumin 3.1 L (3.5-5.0) g/dL Urine 03/30/17 Range/Units 03:05 Urine Color Yellow (Yellow) Urine Clarity Clear (Clear) Urine pH 6.0 (5.0-8.0) pH Units Ur Specific [place] > 1.030 H (1.010-1.025) Urine Protein Negative (Neg-Trace) mg/dL Urine Glucose (UA) >=1000 H (Normal) mg/dL - ABG Interpretation ABG results: PT/INR, D-dimer PT 10.9 Seconds (9.4-12.1) 03/30/17 04:44 D-Dimer 1047 ng/mLFEU (0-500) H 03/29/17 16:33 - Impressions Impressions Echocardiogram 03/30/17 20:10 Impressions: Normal LV systolic function, LVEF 55%. Mild concentric left ventricular hypertrophy. Normal left ventricular diastolic function. Mildly dilated right ventricle with normal systolic function. No significant valvular dysfunction. No evidence of pulmonary hypertension. Left Ventricular Wall Motion: Rest Echo Findings All wall segments showed normal motion. Findings: Study Quality * Suboptimal echo windows. ECG Findings * Normal sinus rhythm. Left Ventricle * Normal LV systolic function, LVEF 55%. * Normal LV chamber size. * Mild concentric left ventricular hypertrophy. * Normal left ventricular diastolic function. Right Ventricle * Mildly dilated right ventricle with normal systolic function. Left Atrium * Normal left atrial size. Right Atrium * Normal right atrial size. Aorta * Normally sized aortic root. Pericardium * There is no pericardial effusion present. IVC * The IVC is not dilated. Aortic Valve * Aortic valve not well visualized. Appears mildly sclerotic. * No aortic stenosis. * No aortic regurgitation. Mitral Valve * Mildly thickened/calcified mitral valve leaflets. * No mitral stenosis. * Trace mitral regurgitation. Tricuspid Valve * Tricuspid valve not well visualized. * No tricuspid stenosis. * Trace tricuspid regurgitation. * No evidence of pulmonary hypertension. Pulmonic Valve * Pulmonic valve not well visualized. * No pulmonic stenosis. * Trace pulmonic regurgitation. Consult Discharge Plan - Plan Instructions: How to Check Your Blood Sugar (GEN), Diabetic Foot Care (GEN), Diabetes Mellitus Type 2 in Adults (GEN), Weight Management (GEN), Meal Planning with the Plate Model (GEN), Meal Planning with Diabetes Exchanges (GEN)
--- NOTE | 2017-03-30 19:38 | Electrocardiograph Report ---
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
--- NOTE | 2017-03-30 19:38 | Electrocardiograph Report ---
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
[2017-03-30] MEDS: Azithromycin 500 MG in D5% in Water 250 ML IVPB SCH (20:49)
[2017-03-30] MEDS ORDERED: Insulin LISPRO 300 UNITS/3 ML VIAL SQ SCH (21:00)
[2017-03-31] MEDS: Ipratropium/Albuterol Neb 3 ML IH SCH ×3 (03:41→11:29)
[2017-03-31] MEDS: *HR* Heparin 5,000 UNIT/ML VIAL SQ SCH ×2 (05:30→12:11)
[2017-03-31] MEDS: MethylPREDNISolone 40 MG/ML VIAL IVP SCH (05:30)
[2017-03-31] MEDS: Insulin LISPRO 300 UNITS/3 ML VIAL SQ SCH ×2 (08:17→12:11)
[2017-03-31] MEDS: Furosemide 40 MG TABLET PO SCH (08:18)
[2017-03-31] MEDS: Aspirin Enteric Coated 81 MG Tablet PO SCH (08:18)
[2017-03-31] MEDS: Cyanocobalamin (B-12) 1,000 MCG TABLET PO SCH (08:18)
[2017-03-31] MEDS: Pantoprazole 40 MG VIAL IVP SCH (08:18)
[2017-03-31] MEDS: Insulin DETEMIR 100 UNIT/ML X5UNITS SQ SCH (08:35)
--- NOTE | 2017-03-31 10:07 | Nuclear Medicine Stress Report ---
Regadenoson Nuclear 2 day Name: Rafa De Paz Date of Study: 03/30/2017 Date: 1955 Ht: 67.0 in Medical Record#: [id number] Age: 61 Wt: 289.0 lb Gender: Male Order #: [id number] Location: [facility] Room: [facility] hospital Supervising Provider: Mian Aj CNP Reading Physician: Gonzalo Jackson DO, FACC, FASAL Ordering Physician: Joy Talley CNP Stress Technologist: Alexi Staples CRT Care Companion: Enrique Donaldson Indications: Chest Pain Impression: Pharmacologic stress ECG is negative for ischemia at level of heart rate achieved. Gated EF = 54%. Small sized, mild intensity, fixed inferolateral defect consistent with artifact. Perfusion imaging was negative for ischemia or infarct. History: Diabetes Hypercholesteremia History of Smoking Prior PCI Stress Test Summary: Stress Test Type: Pharmacologic Regadenoson 0.4mg/5ml given IV Baseline Information: Initial Heart Rate: 68 Blood Pressure: 86/126 Stress Information: Test Terminated Due to (primary): As per protocol Maximum Blood Pressure: 112/58 Maximum Heart Rate: 110 Percent Maximum Heart Rate Achieved: 68 Double Product: [id number] METS Reached: 1 Symptoms: No chest symptoms Nuclear Summary: SPECT myocardial perfusion imaging using Tc99m Sestamibi given intravenously was performed at rest and following cardiac stress testing. The resting images were obtained following initial dose of 34.6 mCi. Following stress an additional dose of 34.8 mCi was given at peak exercise or 30 seconds post regadenoson infusion. Medication Given: Time Medication Dose Units Route Findings: Stress Note * Resting ECG demonstrated normal sinus rhythm. * No baseline arrhythmias were noted. * Pharmacologic stress ECG is negative for ischemia at level of heart rate achieved. * No arrhythmias were noted during stress. * Patient had no chest pain during stress. * Normal hemodynamic responses to pharmacologic stress. Study Quality * Study quality is average. Gated EF % * Gated EF = 54%. Left Ventricle * LVEDV = 139 mL. * The left ventricle is dilated. * Normal wall motion. Inferior Perfusion Rest * The inferolateral segment shows a mild reduction in perfusion. Inferior Perfusion Stress * The inferolateral segment shows a mild reduction in perfusion. TID * No evidence of transient ischemic dilatation. TID ratio = 1.03. Lung Uptake * There is no evidence of increase lung uptake. Updated by Gonzalo Jackson DO, SHANTA, ISAAK, CAMILLE on 03/31/2017 10:02:04 AM electronically signed on 03/31/2017 10:03:31 AM with status of Final
[2017-03-31 11:41] VITALS: BP 118/70
--- NOTE | 2017-03-31 13:52 | Discharge Summary ---
Date of Encounter: 03/31/17 Time of Encounter: 13:10 - Discharge Diagnosis (1) Chest pain Priority: Primary Status: Acute Comments: Patient denies chest pain today. He reports productive cough with green sputum still. Patient had an echocardiogram yesterday that showed an LVEF of 55% with normal systolic function, normal diastolic function with no significant valvular dysfunction. Stress test was resulted today that was negative with the gated EF of 54%. There is a small sized, mild intensity, fixed inferolateral defect consistent with artifact. No further testing is required at this time. Chest pain is most likely due to cough due to bronchitis. Patient will continue at home on steroids, Tessalon Perles, and his breathing treatments. His lungs are clear but diminished in posterior corea, clear and diminished in the anterior lung corea with faint expiratory wheezing heard over left anterior chest wall. Patient denies reproduction of pain with deep inspiration, movement, or palpation. Qualifiers: Chest pain type: unspecified Qualified Code(s): R07.9 - Chest pain, unspecified (2) CAD (coronary artery disease) Priority: Secondary Status: Chronic Comments: Patient denies chest pain. Continue aspirin, statin, beta ruben. Qualifiers: Coronary Disease-Associated Artery/Lesion type: [place] artery [place] vs. transplanted heart: [place] heart Associated angina: without angina Qualified Code(s): I25.10 - Atherosclerotic heart disease of [place] coronary artery without angina pectoris (3) GERD (gastroesophageal reflux disease) Priority: Secondary Status: Chronic Comments: Chronic. Continue home medications. Qualifiers: Esophagitis presence: esophagitis presence not specified Qualified Code(s) : K21.9 - Gastro-esophageal reflux disease without esophagitis (4) Leukocytosis Priority: Secondary Status: Acute Comments: Improving. Pt on steroids, will continue after discharge. Pt is afebrile and has no tachypna or tachycardia. Lactic 1.1. Qualifiers: Leukocytosis type: unspecified Qualified Code(s): D72.829 - Elevated white blood cell count, unspecified (5) Diabetes Priority: Secondary Status: Chronic Comments: Pt is non-compliant, A1c 10.8. Pt has been seen by nutrition, states that he is non-adherent with diet and medication regimen. 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 Continue home medications. Qualifiers: Hyperlipidemia type: pure hypercholesterolemia Qualified Code(s): E78.00 - Pure hypercholesterolemia, unspecified; E78.0 - Pure hypercholesterolemia (7) HTN (hypertension) Priority: Secondary Status: Chronic Comments: Chronic. Well controlled. Continue home medication. Qualifiers: Hypertension type: essential hypertension Qualified Code(s): I10 - Essential (primary) hypertension (8) DVT prophylaxis Priority: Secondary Status: Acute Comments: Heparin SQ. (9) Non compliance w medication regimen Priority: Secondary Status: Chronic Comments: Pt states that he does not take his medications as prescribed and is non- adherent to diet. - Discharge Medications Prescriptions: Azithromycin [Zithromax] 250 mg PO Q24H #5 tablet Benzonatate [Tessalon] 100 mg PO TID PRN #30 capsule PRN Reason: Cough predniSONE [PredniSONE] 10 mg PO DAILY #31 tablet Home Medications: Aspirin Enteric Coated [Aspirin EC] 81 mg PO DAILY 12/11/15 [History] Gabapentin [Neurontin] 800 mg PO QID 12/11/15 [History] Insulin ASPART [NovoLOG] 70 unit SQ BID 12/11/15 [History] Insulin DETEMIR [Levemir] 70 unit SQ BID 12/11/15 [History] Lovastatin [Mevacor] 20 mg PO HS 03/28/16 [History] Nitroglycerin [Nitrostat] 0.4 mg SL Q5M PRN 03/28/16 [History] Clopidogrel [Plavix] 75 mg PO DAILY #30 tablet 03/29/16 [Rx] Furosemide [Lasix] 40 mg PO DAILY 02/01/17 [History] Lisinopril [Zestril] 10 mg PO DAILY 02/01/17 [History] Metoprolol [Lopressor] 25 mg PO BID 02/01/17 [History] Cyanocobalamin (Vitamin B-12) [Vitamin B12] 1,000 mcg PO DAILY 03/29/17 [History ] [place]-3/Dha/Epa/Fish Oil [Fish Oil 1,000 mg Softgel] 1,000 mg PO DAILY 03/29/17 [History] Azithromycin [Zithromax] 250 mg PO Q24H #5 tablet 03/31/17 [Rx] Benzonatate [Tessalon] 100 mg PO TID PRN #30 capsule 03/31/17 [Rx] predniSONE [PredniSONE] 10 mg PO DAILY #31 tablet 03/31/17 [Rx] Allergies/Adverse Reactions: 3 Allergy/AdvReac Type Severity Reaction Status Date / Time No Known Allergies Allergy Verified 02/01/17 08:57 Procedures/tests Complete & Pending: Procedures Performed prior 72 hours Category Date Time Status NM sagar perf SPECT multi [NM] Routine Exams 03/29/17 20:11 Taken ECG 12 lead ECG [ECG] Routine Y 03/29/17 16:17 Completed EV echocardiogram Routine Y 03/30/17 20:10 Completed SP pharm nuclear stress Routine Y 03/30/17 07:35 Completed Date of admission: 03/29/17 18:35 Primary care physician: [place] Consults: 03/29/17 20:08 Consult to Physical Therapy [CONS] Routine Comment: Evaluate, develop and implement POC Reason for Consult: Patient has recent accident on his riding lawn varnish remover which caused him to injure his tailbone. Please assess for strength, stability, ambulation/assistive needs for post-discharge planning. 03/29/17 20:09 Consult to Occupational Therapy [CONS] Routine Comment: Evaluate, develop and implement POC Reason for Consult: Patient has recent accident on his riding lawn varnish remover which caused him to injure his tailbone. Please assess for strength, stability, ambulation/assistive needs for post-discharge planning. 03/29/17 20:54 Consult to Automobile Assembly Supervisor [CONS] Routine Comment: Reason for Consult: Patient has uncontrolled diabetes. Please provide education on diet, wound susceptibility and healing, and plans for weight reduction. 03/30/17 05:24 Consult to Assistant Tennis Professional [CONS] Routine Reason for SW Consult: patient interested in establishing advanced directives 03/30/17 17:43 Consult to Nutrition [CONS] Routine Comment: Pt needs more education on diabetic diet and carb Consulting Provider: NUTRITION Reason for Dietary Consult: Diet Education Discharging clinician: Joy Talley Anticipated date of discharge: 03/31/17 - Patient Status Disposition: Home, Self-Care Condition: Good Functional capacity at discharge: independent ambulation Overall status at discharge: patient is progressing back to baseline - Discharge Instructions Instructions: How to Check Your Blood Sugar (GEN), Diabetic Foot Care (GEN), Diabetes Mellitus Type 2 in Adults (GEN), Weight Management (GEN), Meal Planning with the Plate Model (GEN), Meal Planning with Diabetes Exchanges (GEN) Follow Up With: [place] [Primary Care Provider] - Abrahan Rocha DPM [Partnered Physician] - (Web request sent for f/u for toe nail trim with DM ) Additional Instructions: Follow up with your PCP in the next 7-10 days for a recheck. Return to the ER as neede for any other problems or concerns or if your symptoms return or worsen. Take your new medications as directed. Continue your other home medications, set an alarm or a reminder on your phone to take the medications on schedule daily. Resume your normal activites as tolerated. - Diet and Activity Activity: resume usual activities as tolerated Diet: diabetic diet, low fat, low cholesterol, low salt diet Hospital course: Mr. De Paz is a 61 year old male with a medical history of left lower extremity ulcer, unstable angina, coronary artery disease, diabetes, atherosclerosis, GERD , COPD, hyperlipidemia, hypertension, smoking. Patient has prior [place] in 2016 with placement of stent . He presented to the emergency department with chest pain for 3 days. Described as a constant pressure in the center of his chest that became worse with deep inspiration. He also reports dizziness and shortness of breath no recent illness, nausea, vomiting, fever, chills, headache , vision changes, abdominal pain, diarrhea, constipation, presyncope. Troponins were negative. Chest x-ray was negative. Patient had an elevated d- dimer, chest CTA was negative. He has no symptoms of bilateral lower DVT. Bilateral lower extremity venous duplex was normal. Echocardiogram with normal LV systolic function, LVEF of 55% normal LV diastolic function, no significant valvular dysfunction. Stress test was negative for ischemia with a gated EF of 54%. Patient reports productive cough with green sputum. Patient is being treated with steroids, nebulizer treatments, Tessalon Perles for cough. He will continue these at home. Chest pain was most likely related to COPD exacerbation. He is a smoker and states that he is not ready to stop smoking. He normally smokes one half packs per day. Patient's lungs are clear and diminished posteriorly clear with faint expiratory wheezing anteriorly. Patient does wear home O2 and use supplemental O2 here to maintain sats greater than 92%. He will be sent home with prescriptions for steroid taper, Tessalon Perles, as well as continue the Zithromax at home. Patient admits to being noncompliant with medication regimen and diabetic diet. A1c is greater than 10%. I have nutrition see patient to discuss importance of diabetic diet. She states that patient is aware and knows how to do it, he just does not do it. Patient states he gets busy in the morning for gifts to take his medications. We discussed my recommendation of starting a alarm or beltran on his phone to try to remember to take his medications. Patient will continue his dose of Levemir and sliding scale insulin at home. He will also continue his medications for GERD, as well as his aspirin, since statin, beta ruben, Plavix first coronary artery disease. - Time Spent with Patient Total time spent providing and/or coordinating discharge services: Less than 30 minutes - Constitutional Vitals: Temp Pulse Resp BP Pulse Ox 97.5 F L 86 20 118/70 93 03/31/17 11:40 03/31/17 11:40 03/31/17 11:40 03/31/17 11:40 03/31/17 11:40 General appearance: Present: cooperative, mild distress, A&O X 3, morbidly obese , pleasant, no acute distress, answers questions appropriately - Head Head exam: Present: atraumatic, normal inspection, normocephalic - Eye Eye exam: Present: normal appearance, conjuntiva pink, sclera anicteric - Neck Neck exam general surgery: Present: supple, trachea midline. Absent: lymphadenopathy - Respiratory Respiratory exam: Present: decreased breath sounds, CTAB, wheezes. Absent: accessory muscle use, chest wall tenderness, rales, rhonchi - Cardiovascular Cardiovascular exam: Present: RRR, +S1, +S2. Absent: diastolic murmur, gallop, rubs, systolic murmur - GI/Abdominal GI/Abdominal exam: Present: normal bowel sounds, soft, no peritoneal signs. Absent: distended, hepatomegaly, tenderness - Extremities Exam Extremities exam: Present: warm, radial pulses palpable and symmetrical. Absent : calf tenderness, cyanotic, pedal edema - Neurological Exam Neurological exam: Present: alert, oriented X3, no focal deficits. Absent: facial droop, speech deficit - Skin Skin exam: Present: dry, intact, normal color, warm. Absent: rash
== END 2017-03-31 14:53 | disposition home or self-care (01) ==
LOC: 3BNU 16:14 → EMEROO 16:14 → 3BNU 19:55
PROVIDERS: ADMIT Nurse Practitioner Family; ATTEND Registered Nurse

== ENCOUNTER 2018-05-12 16:46 | Observation (INO) ==
[2018-05-12] MEDS ORDERED: Ipratropium/Albuterol Neb 3 ML IH ONE (17:05)
[2018-05-12] MEDS ORDERED: methylPREDNISolone 125 MG/2 ML VIAL IVP ONE (17:05)
--- NOTE | 2018-05-12 17:06 | Emergency Department Note ---
Disposition Clinical Impression: COPD exacerbation, Hyperglycemia, Hypoxia Disposition: Admitted As Inpatient Condition: Good Referrals: [place] [Primary Care Provider] - Forms: ED Satisfaction Letter Time of Disposition: 20:13 SOB HPI - General Chief Complaint: ED Shortness of Breath/Dyspnea Stated Complaint: AUGUSTINA Time Seen by Provider: 05/12/18 16:51 Source: patient, family () Mode of arrival: ambulatory Limitations: no limitations Nursing Notes Reviewed: Yes Vital Signs Reviewed: Yes - History of Present Illness 62-year-old male history of CAD with 1 stent and COPD presents emergency department with difficulty in breathing. Initially reports this was of sudden onset however he states it was progressively worsening throughout the day. Today he has been more active and exerting himself as he recently was in [place] for a chicken show. He gets more short of breath with activity and movement. Denies any associated chest pain. He does report a productive cough ongoing for almost a month now. Denies any fever. No change to the color of the sputum. He reports a history of COPD however for several years now he has not been using any inhalers. He recently stopped smoking. Denies any leg swelling. No nausea or vomiting. No recent illnesses. He currently takes aspirin and recently discontinued his Plavix. No history of blood clots. Pt Subjective Complaint: shortness of breath, cough - Related Data Home Medications Medication Instructions Recorded Confirmed Aspirin Enteric Coated [Aspirin EC] 81 mg PO DAILY 12/11/15 04/12/17 Gabapentin [Neurontin] 800 mg PO QID 12/11/15 04/12/17 Insulin ASPART [NovoLOG] 70 unit SQ BID 12/11/15 04/12/17 Insulin DETEMIR [Levemir] 70 unit SQ BID 12/11/15 04/12/17 Lovastatin [Mevacor] 20 mg PO HS 03/28/16 04/12/17 Nitroglycerin [Nitrostat] 0.4 mg SL Q5M PRN 03/28/16 04/12/17 Furosemide [Lasix] 40 mg PO DAILY 02/01/17 04/12/17 Metoprolol [Lopressor] 25 mg PO BID 02/01/17 04/12/17 Previous Rx's Medication Instructions Recorded Clopidogrel [Plavix] 75 mg PO DAILY #30 tablet 03/29/16 Losartan [Cozaar] 25 mg PO DAILY #30 tablet 04/12/17 Allergies Allergy/AdvReac Type Severity Reaction Status Date / Time No Known Allergies Allergy Verified 02/01/17 08:57 All systems ED: reviewed and negative except as stated. Review of Systems: As Per HPI Constitutional: Denies: fever, chills ENT ED: Denies: congestion Cardiovascular: Denies: chest pain Respiratory: Reports: cough, dyspnea, wheezes. Denies: hemoptysis Gastrointestinal: Denies: abdominal pain, nausea, vomiting Genitourinary: Denies: urgency, dysuria Musculoskeletal: Denies: back pain Integumentary: Denies: rash Neurological: Denies: headache Psychiatric: Denies: anxiety, depression Past Medical History - Past Medical History Attestation: Yes The following information was validated with the patient. Source: patient Medical history: Reports: COPD, coronary artery disease, diabetes, GERD, hyperlipidemia, hypertension Surgical history: Reports: angioplasty/stent, appendectomy, cholecystectomy, herniorrhaphy, knee replacement, orthopedic, other Psychiatric history: Reports: no psych history - Social History Smoking Status: Current every day smoker Smokeless Tobacco Status: No Alcohol use: Reports: none Drug use: Reports: none Physical Exam - General Limitations: no limitations General appearance: alert, in distress (Respiratory), obese - Head Head exam: atraumatic, normocephalic, normal inspection - Eye Eye exam: Present: normal appearance, PERRL, EOMI - ENT ENT exam: normal exam, normal oropharynx, mucous membranes moist - Neck Neck exam: Present: normal inspection, full ROM, trachea midline - Chest Chest inspection: Present: normal inspection, symmetric chest wall rise - Respiratory Respiratory exam: Present: respiratory distress, wheezes, accessory muscle use, prolonged expiratory phase, other (Tight aeration) - Cardiovascular Cardiovascular exam: Present: regular rate, normal rhythm, normal heart sounds - Expanded Cardiovascular Exam Peripheral pulses: 2+: radial (R), radial (L) - Abdominal Exam Abdominal exam: Present: soft (Obese), Non-Tender, distention. Absent: tenderness, guarding, rebound, rigidity - Extremities Exam Extremities exam: Present: normal inspection, full ROM, normal capillary refill. Absent: tenderness, pedal edema, calf tenderness - Neurological Exam Neurological exam: Present: alert, oriented X3 - Psychiatric Psychiatric exam: Present: normal affect, normal mood - Skin Skin exam: Present: warm, dry, intact, normal color. Absent: rash, cyanosis, diaphoresis Course Course Narrative: presents in respiratory distress. His initial oxygen saturations 83%. He is tight bilaterally without any crackles. History of COPD. Will give him DuoNeb steroids and initiate BiPAP. During evaluation his rhythm became Bigeminy and then return back to sinus. He has been going in and out but there has not been any consecutive runs of PVC. He is denying any chest pain during this time area no history of any blood clots. - Reevaluation(s) Reevaluation #1: On reevaluation patient is tolerating the BiPAP. His lungs are now clear without any wheezing. He has a mild leukocytosis. His arterial blood gas showed a pH of 7.36 with a CO2 of 56 and oxygen greater than 300. We decreased his respiratory oxygen. He is however hyperglycemic without significant gap. His lactate is is elevated at 2.5. The chest x-ray is pending at this time but there was no focal crackles auscultated. The D dimer was normal at 412. Given his symptoms will likely admit for COPD exacerbation and hyperglycemia. Time: 18:05 - Consultations Consultation #1: Spoke with on-call hospitalist pk Patel to admit for COPD exacerbation and hyperglycemia. No further orders at this time Vital Signs O2 Sat by Pulse Oximetry 83 05/12/18 16:51 Temperature 97.7 F 05/12/18 17:02 Pulse Rate 106 05/12/18 19:30 Respiratory Rate 22 05/12/18 19:30 Blood Pressure 155/92 05/12/18 19:30 O2 Sat by Pulse Oximetry 98 05/12/18 19:30 Oxygen Delivery Oxygen Delivery Bipap Shortness of Breath/Dyspnea - MDM Narrative Medical decision making narrative: Patient was discussed with my attending physician who agrees with ED management and final disposition. They independently evaluated the patient. Please refer to their attestation to this encounter for additional information. This note was generated by [employer] voice recognition software and as a result grammatical or spelling errors may occur using this program. - Medical Records Medical records reviewed: Yes I reviewed the patient's medical records. - Lab Data Lab results reviewed: Yes I reviewed the patient's lab results. Result diagrams: 05/12/18 17:16 05/12/18 17:05 Lab Results 05/12/18 05/12/18 05/12/18 Range/Units 16:51 17:05 17:11 WBC (4.3-11.1) K/mcL RBC (4.19-5.50) M/mcL Hgb (12.9-16.9) g/dL Hct (37.5-50.1) % MCV (83.0-100.0) fL MCH (28.0-33.3) pg MCHC (31.6-35.5) g/dL RDW (11.5-14.5) % Plt Count (140-400) K/mcL MPV (9.4-12.4) fL Immature Gran % (0-4) % Seg Neutrophils % % Lymphocytes % % Monocytes % % Eosinophils % % Basophils % % Neutrophils # (1.6-8.9) K/mcL Lymphocytes # (0.6-4.6) K/mcL Monocytes # (0.0-1.3) K/mcL Eosinophils # (0.0-0.6) K/mcL Basophils # (0.0-0.2) K/mcL D-Dimer 412 (0-500) ng/mLFEU Sample Site ABG pH (7.32-7.45) pH Units ABG pCO2 (35-45) mmHg ABG pO2 (85-104) mmHg ABG HCO3 (21-27) mEq/L ABG Total CO2 (20-26) mEq/L ABG O2 Saturation (95-98) % ABG Base Excess (-2 to 3) mEq/L Vineet Test O2 Delivery Device Inspired O2 (1-15=lpm as31-200=%) Sodium 135 L (136-145) mEq/L Potassium 4.1 (3.5-5.1) mEq/L Chloride 97 L (98-107) mEq/L Carbon Dioxide 28 (23-29) mEq/L BUN 11 (8-23) mg/dL Creatinine 0.78 (0.70-1.30) mg/dL Est GFR ( Amer) > 60 (> 60) Est GFR (Non-Af Amer) > 60 (> 60) BUN/Creatinine Ratio 14 (6-26) Glucose 413 H (70-105) mg/dL Calculated Osmolality 297 (280-300) Lactic Acid (0.5-2.2) mmol/L Calcium 9.2 (8.6-10.3) mg/dL Troponin I < 0.03 (< 0.04) ng/mL B-Natriuretic Peptide (Less than 100) pg/mL Urine Color Yellow (Yellow) Urine Clarity Clear (Clear) Urine pH 6.0 (5.0-8.0) pH Units Ur Specific [place] 1.030 H (1.010-1.025) Urine Protein Negative (Neg-Trace) mg/dL Urine Glucose (UA) >=1000 H (Normal) mg/dL Urine Ketones Negative (Negative) mg/dL Urine Blood Negative (Negative) Urine Nitrite Negative (Negative) Urine Bilirubin Negative (Negative) Urine Urobilinogen Normal (Normal) mg/dL Ur Leukocyte Esterase Negative (Negative) Ur Culture Indicated? NO (NO) 05/12/18 05/12/18 05/12/18 Range/Units 17:16 17:16 17:16 WBC 11.5 H (4.3-11.1) K/mcL RBC 5.38 (4.19-5.50) M/mcL Hgb 15.6 (12.9-16.9) g/dL Hct 44.9 (37.5-50.1) % MCV 83.5 (83.0-100.0) fL MCH 29.0 (28.0-33.3) pg MCHC 34.7 (31.6-35.5) g/dL RDW 13.7 (11.5-14.5) % Plt Count 407 H (140-400) K/mcL MPV 10.4 (9.4-12.4) fL Immature Gran % 1.2 (0-4) % Seg Neutrophils % 68.9 % Lymphocytes % 16.8 % Monocytes % 7.7 % Eosinophils % 4.0 % Basophils % 1.4 % Neutrophils # 7.9 (1.6-8.9) K/mcL Lymphocytes # 1.9 (0.6-4.6) K/mcL Monocytes # 0.9 (0.0-1.3) K/mcL Eosinophils # 0.5 (0.0-0.6) K/mcL Basophils # 0.2 (0.0-0.2) K/mcL D-Dimer (0-500) ng/mLFEU Sample Site ABG pH (7.32-7.45) pH Units ABG pCO2 (35-45) mmHg ABG pO2 (85-104) mmHg ABG HCO3 (21-27) mEq/L ABG Total CO2 (20-26) mEq/L ABG O2 Saturation (95-98) % ABG Base Excess (-2 to 3) mEq/L Vineet Test O2 Delivery Device Inspired O2 (1-15=lpm [id number]=%) Sodium (136-145) mEq/L Potassium (3.5-5.1) mEq/L Chloride (98-107) mEq/L Carbon Dioxide (23-29) mEq/L BUN (8-23) mg/dL Creatinine (0.70-1.30) mg/dL Est GFR ( Amer) (> 60) Est GFR (Non-Af Amer) (> 60) BUN/Creatinine Ratio (6-26) Glucose (70-105) mg/dL Calculated Osmolality (280-300) Lactic Acid 2.5 H (0.5-2.2) mmol/L Calcium (8.6-10.3) mg/dL Troponin I (< 0.04) ng/mL B-Natriuretic Peptide 65 (Less than 100) pg/mL Urine Color (Yellow) Urine Clarity (Clear) Urine pH (5.0-8.0) pH Units Ur Specific [place] (1.010-1.025) Urine Protein (Neg-Trace) mg/dL Urine Glucose (UA) (Normal) mg/dL Urine Ketones (Negative) mg/dL Urine Blood (Negative) Urine Nitrite (Negative) Urine Bilirubin (Negative) Urine Urobilinogen (Normal) mg/dL Ur Leukocyte Esterase (Negative) Ur Culture Indicated? (NO) 05/12/18 05/12/18 Range/Units 17:21 19:22 WBC (4.3-11.1) K/mcL RBC (4.19-5.50) M/mcL Hgb (12.9-16.9) g/dL Hct (37.5-50.1) % MCV (83.0-100.0) fL MCH (28.0-33.3) pg MCHC (31.6-35.5) g/dL RDW (11.5-14.5) % Plt Count (140-400) K/mcL MPV (9.4-12.4) fL Immature Gran % (0-4) % Seg Neutrophils % % Lymphocytes % % Monocytes % % Eosinophils % % Basophils % % Neutrophils # (1.6-8.9) K/mcL Lymphocytes # (0.6-4.6) K/mcL Monocytes # (0.0-1.3) K/mcL Eosinophils # (0.0-0.6) K/mcL Basophils # (0.0-0.2) K/mcL D-Dimer (0-500) ng/mLFEU Sample Site R Radial ABG pH 7.35 (7.32-7.45) pH Units ABG pCO2 56 H (35-45) mmHg ABG pO2 406 H (85-104) mmHg ABG HCO3 31 H (21-27) mEq/L ABG Total CO2 33 H (20-26) mEq/L ABG O2 Saturation 100 H (95-98) % ABG Base Excess 4 H (-2 to 3) mEq/L Vineet Test Positive O2 Delivery Device BiPAP Inspired O2 100.0 (1-15=lpm [id number]=%) Sodium (136-145) mEq/L Potassium (3.5-5.1) mEq/L Chloride (98-107) mEq/L Carbon Dioxide (23-29) mEq/L BUN (8-23) mg/dL Creatinine (0.70-1.30) mg/dL Est GFR ( Amer) (> 60) Est GFR (Non-Af Amer) (> 60) BUN/Creatinine Ratio (6-26) Glucose (70-105) mg/dL Calculated Osmolality (280-300) Lactic Acid 2.8 H (0.5-2.2) mmol/L Calcium (8.6-10.3) mg/dL Troponin I (< 0.04) ng/mL B-Natriuretic Peptide (Less than 100) pg/mL Urine Color (Yellow) Urine Clarity (Clear) Urine pH (5.0-8.0) pH Units Ur Specific [place] (1.010-1.025) Urine Protein (Neg-Trace) mg/dL Urine Glucose (UA) (Normal) mg/dL Urine Ketones (Negative) mg/dL Urine Blood (Negative) Urine Nitrite (Negative) Urine Bilirubin (Negative) Urine Urobilinogen (Normal) mg/dL Ur Leukocyte Esterase (Negative) Ur Culture Indicated? (NO) - Radiology Data Radiology results reviewed: Yes I reviewed the patient's radiology results. - EKG Data EKG attestation: Yes I reviewed and interpreted this EKG. EKG results narrative: EKG performed 1700 sinus tachycardia 160 beats per minute, normal axis, good R wave progression, no ST elevation or depression. 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 No chest pain noted during that time.
[2018-05-12 17:24] LABS: ABG Base Excess 4 mEq/L (-2 to 3); ABG HCO3 31 mEq/L (21-27); ABG Oxygen Saturation 100 % (95-98); ABG PCO2 56 mmHg (35-45); ABG PH 7.35 pH Units (7.32-7.45); ABG PO2 406 mmHg (85-104); ABG TCO2 33 mEq/L (20-26)
[2018-05-12 17:28] LABS: Basophils # 0.2 K/mcL (0.0-0.2); Basophils % 1.4 %; Eosinophils # 0.5 K/mcL (0.0-0.6); Hematocrit 44.9 % (37.5-50.1); Hemoglobin 15.6 g/dL (12.9-16.9); Immature Granulocytes % 1.2 % (0-4); Lymphocytes # 1.9 K/mcL (0.6-4.6); Lymphocytes % 16.8 %; Mean Corpuscular HGB Conc 34.7 g/dL (31.6-35.5); Mean Corpuscular Volume 83.5 fL (83.0-100.0); Mean Platelet Volume 10.4 fL (9.4-12.4); Monocytes # 0.9 K/mcL (0.0-1.3); Monocytes % 7.7 %; Neutrophils # 7.9 K/mcL (1.6-8.9); Platelet Count 407 K/mcL (140-400); Red Blood Count 5.38 M/mcL (4.19-5.50); Red Cell Distribution Width 13.7 % (11.5-14.5); Segmented Neutrophils % 68.9 %
[2018-05-12 17:54] LABS: Bilirubin,Urine Negative (Negative); Blood,Urine Negative (Negative); Clarity,Urine Clear (Clear); Color,Urine Yellow (Yellow); Glucose,Urine (UA) >=1000 mg/dL (Normal); Ketones,Urine Negative (Negative); Leukocyte Esterase,Urine Negative (Negative); Nitrite,Urine Negative (Negative); Protein,Urine Negative (Neg-Trace); Urobilinogen,Urine Normal (Normal)
[2018-05-12 17:54] LABS: Troponin I < 0.03 ng/mL (< 0.04)
[2018-05-12 17:55] LABS: BUN/Creatinine Ratio 14 (6-26); Blood Urea Nitrogen 11 mg/dL (8-23); Calcium 9.2 mg/dL (8.6-10.3); Carbon Dioxide 28 mEq/L (23-29); Chloride 97 mEq/L (98-107); Glucose 413 mg/dL (70-105); Osmolality,Calculated 297 (280-300); Potassium 4.1 mEq/L (3.5-5.1); Sodium 135 mEq/L (136-145); eGFR For Non-African Americans > 60 (> 60)
--- NOTE | 2018-05-12 17:58 | Emergency Department Note ---
Disposition Clinical Impression: COPD exacerbation Disposition: Admitted As Inpatient Forms: ED Satisfaction Letter General Adult HPI - General Chief complaint: ED Shortness of Breath/Dyspnea Stated complaint: AUGUSTINA Time Seen by Provider: 05/12/18 16:51 Source: patient, family () Mode of arrival: ambulatory Limitations: no limitations - History of Present Illness Pain Scale: 0 - Related Data Home Medications Medication Instructions Recorded Confirmed Aspirin Enteric Coated [Aspirin EC] 81 mg PO DAILY 12/11/15 04/12/17 Gabapentin [Neurontin] 800 mg PO QID 12/11/15 04/12/17 Insulin ASPART [NovoLOG] 70 unit SQ BID 12/11/15 04/12/17 Insulin DETEMIR [Levemir] 70 unit SQ BID 12/11/15 04/12/17 Lovastatin [Mevacor] 20 mg PO HS 03/28/16 04/12/17 Nitroglycerin [Nitrostat] 0.4 mg SL Q5M PRN 03/28/16 04/12/17 Furosemide [Lasix] 40 mg PO DAILY 02/01/17 04/12/17 Metoprolol [Lopressor] 25 mg PO BID 02/01/17 04/12/17 Previous Rx's Medication Instructions Recorded Clopidogrel [Plavix] 75 mg PO DAILY #30 tablet 03/29/16 Losartan [Cozaar] 25 mg PO DAILY #30 tablet 04/12/17 Allergies Allergy/AdvReac Type Severity Reaction Status Date / Time No Known Allergies Allergy Verified 02/01/17 08:57 Constitutional: Denies: fever, chills ENT ED: Denies: congestion Cardiovascular: Denies: chest pain Respiratory: Reports: cough, dyspnea, wheezes. Denies: hemoptysis Gastrointestinal: Denies: abdominal pain, nausea, vomiting Genitourinary: Denies: urgency, dysuria Musculoskeletal: Denies: back pain Integumentary: Denies: rash Neurological: Denies: headache Psychiatric: Denies: anxiety, depression Past Medical History - Past Medical History Medical history: Reports: COPD, coronary artery disease, diabetes, GERD, hyperlipidemia, hypertension Surgical history: Reports: angioplasty/stent, appendectomy, cholecystectomy, herniorrhaphy, knee replacement, orthopedic, other Psychiatric history: Reports: no psych history - Social History Smoking Status: Current every day smoker Smokeless Tobacco Status: No Alcohol use: Reports: none Drug use: Reports: none Physical Exam - General Limitations: no limitations General appearance: alert, in distress (Respiratory), obese Course Vital Signs O2 Sat by Pulse Oximetry 83 05/12/18 16:51 Temperature 97.7 F 05/12/18 17:02 Pulse Rate 119 05/12/18 17:19 Respiratory Rate 26 05/12/18 17:29 Blood Pressure 165/116 05/12/18 17:29 O2 Sat by Pulse Oximetry 99 05/12/18 17:29 Oxygen Delivery Oxygen Delivery Bipap Medical Decision Making - Lab Data Result diagrams: 05/12/18 17:16 Lab Results 05/12/18 05/12/18 05/12/18 Range/Units 17:16 17:16 17:21 WBC 11.5 H (4.3-11.1) K/mcL RBC 5.38 (4.19-5.50) M/mcL Hgb 15.6 (12.9-16.9) g/dL Hct 44.9 (37.5-50.1) % MCV 83.5 (83.0-100.0) fL MCH 29.0 (28.0-33.3) pg MCHC 34.7 (31.6-35.5) g/dL RDW 13.7 (11.5-14.5) % Plt Count 407 H (140-400) K/mcL MPV 10.4 (9.4-12.4) fL Immature Gran % 1.2 (0-4) % Seg Neutrophils % 68.9 % Lymphocytes % 16.8 % Monocytes % 7.7 % Eosinophils % 4.0 % Basophils % 1.4 % Neutrophils # 7.9 (1.6-8.9) K/mcL Lymphocytes # 1.9 (0.6-4.6) K/mcL Monocytes # 0.9 (0.0-1.3) K/mcL Eosinophils # 0.5 (0.0-0.6) K/mcL Basophils # 0.2 (0.0-0.2) K/mcL Sample Site R Radial ABG pH 7.35 (7.32-7.45) pH Units ABG pCO2 56 H (35-45) mmHg ABG pO2 406 H (85-104) mmHg ABG HCO3 31 H (21-27) mEq/L ABG Total CO2 33 H (20-26) mEq/L ABG O2 Saturation 100 H (95-98) % ABG Base Excess 4 H (-2 to 3) mEq/L Vineet Test Positive O2 Delivery Device BiPAP Inspired O2 100.0 (1-15=lpm qy12-554=%) Lactic Acid 2.5 H (0.5-2.2) mmol/L Attestation Statement - Attestation Attestation: I examined this patient and my medical decision-making was reviewed with the Resident Physician. I agree with the documented findings, disposition and treatment plan as described except to the extent set forth below. 62 year old male prsets to the eD with complaits of AUGUSTINA and presented to triage in distress and tachypneic. WE have placed him on bipap and he states that he most recently stopped smoking and has been smoking more. Ramiro will be admitted to medicine
[2018-05-12] MEDS ORDERED: 0.9 % Sodium Chloride 500 ML IVC ONE (20:13)
[2018-05-12] MEDS ORDERED: Nitroglycerin 0.4 MG TAB.SUBL SL PRN (20:21)
[2018-05-12] MEDS ORDERED: Insulin Human Regular 5 UNIT in 0.9 % Sodium Chloride 10 ML IV STA (20:22)
[2018-05-12] MEDS ORDERED: Furosemide 40 MG/4 ML VIAL IVP STA (20:23)
[2018-05-12] MEDS ORDERED: Dextrose Gel 15 GM/37.5 ML TUBE PO PRN ×2 (20:25)
[2018-05-12] MEDS ORDERED: *HR* Dextrose 50 % in Water (Syg) 50 ML SYRINGE IVP PRN (20:25)
--- NOTE | 2018-05-12 20:37 | Internal Med History&Physical ---
Date of Encounter: 05/12/18 Time of Encounter: 20:42 Internal Medicine - H&P: HPI Chief complaint: Shortness of breath Admitted From: Home Plans for Post Hospital Care: Home History of present illness: Rafa De Paz is a 62-year-old man with a history of COPD, SENG on CPAP, insulin- dependent diabetes, hyperlipidemia, hypertension and coronary artery disease and is post UT in 2016 with 1 stent placed who presented to the emergency room today a state of respiratory distress with initial oxygen saturations at 83%. He reports that his shortness of breath started earlier this morning and continued to progress. He says he does not have inhalers or nebulizer machine at home. On arrival to the ER he was noted considerably tight and immediately started on duo nebs and steroids and subsequently put on BiPAP. He was also seen to have episodes of bigeminy which returned to sinus rhythm however he denied any epi sodes of chest pain. He improved significantly with treatment and on my assessment he was sitting up in bed, conversant and in no acute distress. He continues to deny chest pain and says that his breathing is much improved. Past Med Surg Social Fam HX - Past Medical History Medical history: COPD, coronary artery disease, diabetes, GERD, hyperlipidemia, hypertension Additional medical history: PVD CLAUDICATION. NEUROPATHY BLE Psychiatric history: no psych history - Past Surgical History Surgical History: angioplasty/stent, appendectomy, cholecystectomy, herniorrhaphy, knee replacement, orthopedic, other Additional surgical history: stents x1, b/l total knee replacement, double hernia repair - Social History Smoking Status: Current every day smoker Smokeless Tobacco Status: No Alcohol use: none Drug use: none - Family History Mother Family Member Ethnicity: Non- Living Status: Hx Family Cancer: Yes (Brain tumor) Brother Family Member Ethnicity: Non- Living Status: Still Living Sister Family Member Ethnicity: Non- Living Status: Still Living Father Family Member Ethnicity: Non- Living Status: Hx Family Cardiac Disorders: Yes (HTN, CAD) Hx Family Endocrine Disorder: Yes (DM) Internal Medicine - H&P: Meds Aspirin Enteric Coated [Aspirin EC] 81 mg PO DAILY 12/11/15 [History] Gabapentin [Neurontin] 800 mg PO QID 12/11/15 [History] Insulin ASPART [NovoLOG] 70 unit SQ BID 12/11/15 [History] Insulin DETEMIR [Levemir] 70 unit SQ BID 12/11/15 [History] Lovastatin [Mevacor] 20 mg PO HS 03/28/16 [History] Nitroglycerin [Nitrostat] 0.4 mg SL Q5M PRN 03/28/16 [History] Clopidogrel [Plavix] 75 mg PO DAILY #30 tablet 03/29/16 [Rx] Furosemide [Lasix] 40 mg PO DAILY 02/01/17 [History] Metoprolol [Lopressor] 25 mg PO BID 02/01/17 [History] Losartan [Cozaar] 25 mg PO DAILY #30 tablet 04/12/17 [Rx] Allergy/AdvReac Type Severity Reaction Status Date / Time No Known Allergies Allergy Verified 02/01/17 08:57 All Systems PM: A 10-system review of systems was performed and is negative for pertinent findings except as documented above in the HPI. - Constitutional Vitals: Temp Pulse Resp BP Pulse Ox 97.7 F 106 22 155/92 98 05/12/18 17:02 05/12/18 19:30 05/12/18 19:30 05/12/18 19:30 05/12/18 19:30 Exam: Vitals: Reviewed General: Obese white man sitting up in bed on Bipap in NAD Skin: Warm and supple HEENT: Moist mucous membranes. No conjunctivae pallor. Neck: No lymphadenopathy. No JVD. No carotid bruits. No palpable thyroid. Chest: Reduced thoracic expansion with diminished breath sounds bilaterally with fine rales at the bases and scattered rhonchi. Heart: Normal S1 & S2; rhythmic. No rubs or murmurs. Abdomen: Obese, soft and non-tender to palpation. No peritoneal reaction. Extremities: 1+ lower extremity edema. No calf tenderness. Normal distal pulses. Neurological: Awake, alert and oriented to person, place and time. No focal deficits. Psych: Affect appropriate. Internal Med - H&P Results - Labs CBC & Chem 7: 05/12/18 17:16 05/12/18 17:05 Labs: Short CBC 05/12/18 Range/Units 17:16 WBC 11.5 H (4.3-11.1) K/mcL Hgb 15.6 (12.9-16.9) g/dL Hct 44.9 (37.5-50.1) % Plt Count 407 H (140-400) K/mcL Neutrophils # 7.9 (1.6-8.9) K/mcL BMP 05/12/18 17:05 Sodium 135 L Potassium 4.1 Chloride 97 L Carbon Dioxide 28 BUN 11 Creatinine 0.78 Glucose 413 H Calcium 9.2 Cardiac Enzymes 05/12/18 Range/Units 17:05 Troponin I < 0.03 (< 0.04) ng/mL Urine 05/12/18 Range/Units 16:51 Urine Color Yellow (Yellow) Urine Clarity Clear (Clear) Urine pH 6.0 (5.0-8.0) pH Units Ur Specific [place] 1.030 H (1.010-1.025) Urine Protein Negative (Neg-Trace) mg/dL Urine Glucose (UA) >=1000 H (Normal) mg/dL - ABG Interpretation ABG results: 05/12/18 17:21 ABG pH 7.35 ABG pCO2 56 H ABG pO2 406 H ABG HCO3 31 H ABG Total CO2 33 H ABG O2 Saturation 100 H ABG Base Excess 4 H - Impressions ITS Impressions Chest X-Ray 05/12/18 17:05 IMPRESSION: Edema versus infection. D/ / Lynette Edwards MD / Lynette Edwards MD Interpreting Provider: Lynette Edwards MD - Assessment and plan (1) Acute hypercapnic respiratory failure Current Visit: Yes Status: Acute Assessment and plan: Secondary to COPD exacerbation and possible component of SENG/OHS as well. We will continue NIPPV, standing nebulizers every 4 hours and systemic steroids. Repeat ABG in the morning. Also concerned for a possible diastolic heart failure component. Will give a dose of furosemide and check an echo. (2) COPD exacerbation Current Visit: Yes Status: Acute Assessment and plan: As indicated above. (3) CAD (coronary artery disease) Current Visit: Yes Status: Chronic Assessment and plan: Continue antiplatelet therapy and statin. No signs of acute ischemic disease at this time. Qualifiers: Coronary Disease-Associated Artery/Lesion type: [place] artery [place] vs. transplanted heart: [place] heart Associated angina: without angina Qualified Code(s): I25.10 - Atherosclerotic heart disease of [place] coronary artery without angina pectoris (4) Diabetes Current Visit: Yes Status: Chronic Assessment and plan: Poorly controlled as evidenced by a hyperglycemic state. Will obtain A1c and strict glycemic control. Qualifiers: Diabetes mellitus type: type 2 Diabetes mellitus lobsterman insulin use: with lobsterman use Diabetes mellitus complication status: with unspecified complications Qualified Code(s): E11.8 - Type 2 diabetes mellitus with unspecified complications; Z79.4 - [facility] (current) use of insulin (5) GERD (gastroesophageal reflux disease) Current Visit: Yes Status: Chronic Assessment and plan: Continue PPI. Qualifiers: Esophagitis presence: esophagitis presence not specified Qualified Code(s): K21.9 - Gastro-esophageal reflux disease without esophagitis (6) HLD (hyperlipidemia) Current Visit: Yes Status: Chronic Assessment and plan: On statin. Check lipid panel. Qualifiers: Hyperlipidemia type: pure hypercholesterolemia Qualified Code(s): E78.00 - Pure hypercholesterolemia, unspecified; E78.0 - Pure hypercholesterolemia (7) HTN (hypertension) Current Visit: Yes Status: Chronic Assessment and plan: Uncontrolled as did not take antihypertensives today. Will resume. Qualifiers: Hypertension type: essential hypertension Qualified Code(s): I10 - Essential (primary) hypertension (8) DVT prophylaxis Current Visit: Yes Status: Acute Assessment and plan: Heparin SubQ. - Time Spent With Patient Total time spent is greater than 50% in coordination of care (as documented) at patient's floor/unit and/or counseling patient: Greater than 35 minutes
[2018-05-12] MEDS: Insulin DETEMIR 100 UNIT/ML X5UNITS SQ SCH (21:42)
[2018-05-12] MEDS: *HR* Heparin 5,000 UNIT/ML VIAL SQ SCH (21:43)
[2018-05-12] MEDS: Gabapentin 400 MG CAPSULE PO SCH (21:43)
[2018-05-12] MEDS: Ipratropium/Albuterol Neb 3 ML IH SCH (23:07)
[2018-05-13] MEDS: Insulin LISPRO 300 UNITS/3 ML VIAL SQ SCH ×5 (00:30→22:29)
[2018-05-13] MEDS ORDERED: Insulin Human Regular 10 UNIT in 0.9 % Sodium Chloride 10 ML IV STA (00:33)
[2018-05-13 03:30] LABS: Basophils # 0.1 K/mcL (0.0-0.2); Basophils % 0.5 %; Hematocrit 42.6 % (37.5-50.1); Immature Granulocytes % 1.3 % (0-4); Lymphocytes # 0.8 K/mcL (0.6-4.6); Lymphocytes % 4.9 %; Mean Corpuscular HGB Conc 35.2 g/dL (31.6-35.5); Mean Corpuscular Hemoglobin 28.9 pg (28.0-33.3); Mean Corpuscular Volume 82.1 fL (83.0-100.0); Mean Platelet Volume 10.1 fL (9.4-12.4); Monocytes # 0.3 K/mcL (0.0-1.3); Neutrophils # 14.4 K/mcL (1.6-8.9); Platelet Count 361 K/mcL (140-400); Red Blood Count 5.19 M/mcL (4.19-5.50); Red Cell Distribution Width 13.4 % (11.5-14.5); Segmented Neutrophils % 91.3 %
[2018-05-13 03:48] LABS: BUN/Creatinine Ratio 18 (6-26); Blood Urea Nitrogen 14 mg/dL (8-23); Calcium 9.1 mg/dL (8.6-10.3); Carbon Dioxide 24 mEq/L (23-29); Chloride 98 mEq/L (98-107); Chol/HDL Ratio 4.7 (0-4.9); Cholesterol 151 mg/dL (< 200); Glucose 399 mg/dL (70-105); HDL Cholesterol 32 mg/dL (40-59); LDL Cholesterol,Calculated 96 mg/dL (0-99); Osmolality,Calculated 295 (280-300); Potassium 4.2 mEq/L (3.5-5.1); Sodium 134 mEq/L (136-145); Triglycerides 116 mg/dL (< 150); eGFR For Non-African Americans > 60 (> 60)
[2018-05-13] MEDS ORDERED: 0.9 % Sodium Chloride 1,000 ML IVC ONE (04:14)
--- NOTE | 2018-05-13 04:18 | Event Note ---
Date of Encounter: 05/13/18 Time of Encounter: 04:18 The patient is seen to have increasing lactic acid for unclear reasons. He remains clinically and hemodynamically stable. He is sleeping comfortably on bipap and when woken up and examined, he offers no complaints. No clinical or radiologic signs of pneumonia present. Will give a 1L bolus of fluids and recheck the lactate in a few hours
[2018-05-13] MEDS: Ipratropium/Albuterol Neb 3 ML IH SCH ×6 (04:47→23:35)
[2018-05-13] MEDS: *HR* Heparin 5,000 UNIT/ML VIAL SQ SCH ×3 (05:17→21:29)
[2018-05-13] MEDS ORDERED: predniSONE 20 MG TABLET PO SCH (09:00)
[2018-05-13] MEDS ORDERED: Perflutren Lipid Microsphere 1.3 ML in 0.9 % Sodium Chloride 8.7 ML IVP ONE (09:20)
--- NOTE | 2018-05-13 11:59 | Internal Med Progress Note ---
Hospitalist Progress Note - Encounter Date of Encounter: 05/13/18 Time of Encounter: 11:54 - Subjective Interval History: Rafa De Paz is a 62-year-old man with a history of COPD, SENG on CPAP, insulin- dependent diabetes, hyperlipidemia, hypertension and coronary artery disease and is post OH in 2016 with 1 stent placed who presented to the emergency room today a state of respiratory distress with initial oxygen saturations at 83%. CXR showed Cardiac silhouette is upper limits of normal in size. No pneumothorax. No pleural effusion. Bronchial wall thickening centrally and well as patchy hazy opacity in the lung bases. Patient was admitted for COPD exacerbation, placed on IV steroids, but his blood sugar has been running high over 400. Steroid is tapered down to oral 40 mg a day he does not have any wheezing. Chest x-ray and possible pneumonia, will add on levofloxacin. Patient was not on any oxygen at home currently requires 4 L nasal cannula. Patient also has bilateral lower extremity edema likely from fluid overload, will continue oral Lasix at this point Possible discharge tomorrow if able to wean off oxygen - Exam Vitals: Temp Pulse Resp BP Pulse Ox 97.9 F 75 12 115/57 98 05/13/18 07:16 05/13/18 07:16 05/13/18 07:18 05/13/18 07:18 05/13/18 07:18 Exam: CONSTITUTIONAL: patient appears as an age appropriate male in no acute distress. EYES Clear sclerae, bilateral pupils are equal, reactive to light. EMOI. RESPIRATORY: No accessory muscle use, bilateral clear to auscultation, no wheezing, no crackles/rales. CARDIOVASCULAR: Regular heart rate, normal S1 and S2, no murmurs GASTROINTESTINAL: bowel sounds present, soft, no tenderness. MUSCULOSKELETAL: Joints in normal range of motion, no clubbing, ++edema, no cyanosis. Bilateral peripheral pulses 2+. NEUROLOGIC: CN II to XII are grossly intact, no focal neurological deficit. - Assessment and Plan (1) COPD exacerbation Current Visit: Yes Status: Acute Assessment and Plan: weaning steroids, no wheezing, weaning O2, add levaquin for possible pneumonia from CXR (2) Acute hypercapnic respiratory failure Current Visit: Yes Status: Acute Assessment and Plan: SENG , on CPAP at night (3) Diabetes Current Visit: Yes Status: Chronic Assessment and Plan: patient was on levemir 80 unit BID, and novolog 70 unit TID AC will add meal lisipro 20 units before meal (4) HLD (hyperlipidemia) Current Visit: Yes Status: Chronic (5) HTN (hypertension) Current Visit: Yes Status: Chronic (6) Hyperglycemia Current Visit: Yes Status: Acute Assessment and Plan: likley from steroids and not giving home pre-meal insulin, will add meal insulin (7) Hypoxia Current Visit: Yes Status: Acute (8) Morbid obesity with BMI of 45.0-49.9, adult Current Visit: Yes Status: Acute - Time Spent with Patient Total time spent is greater than 50% in coordination of care (as documented) at patient's floor/unit and/or counseling patient: Internal Medicine: Result - Labs CBC & Chem 7: 05/13/18 03:16 05/13/18 03:16 Labs: Short CBC 05/12/18 05/13/18 Range/Units 17:16 03:16 WBC 11.5 H 15.8 H (4.3-11.1) K/mcL Hgb 15.6 15.0 (12.9-16.9) g/dL Hct 44.9 42.6 (37.5-50.1) % Plt Count 407 H 361 (140-400) K/mcL Neutrophils # 7.9 14.4 H (1.6-8.9) K/mcL BMP 05/12/18 05/13/18 17:05 03:16 Sodium 135 L 134 L Potassium 4.1 4.2 Chloride 97 L 98 Carbon Dioxide 28 24 BUN 11 14 Creatinine 0.78 0.80 Glucose 413 H 399 H Calcium 9.2 9.1 Cardiac Enzymes 05/12/18 Range/Units 17:05 Troponin I < 0.03 (< 0.04) ng/mL Urine 05/12/18 Range/Units 16:51 Urine Color Yellow (Yellow) Urine Clarity Clear (Clear) Urine pH 6.0 (5.0-8.0) pH Units Ur Specific [place] 1.030 H (1.010-1.025) Urine Protein Negative (Neg-Trace) mg/dL Urine Glucose (UA) >=1000 H (Normal) mg/dL - ABG Interpretation ABG results: ABG ABG pH 7.35 pH Units (7.32-7.45) 05/12/18 17:21 ABG pCO2 56 mmHg (35-45) H 05/12/18 17:21 ABG pO2 406 mmHg (85-104) H 05/12/18 17:21 ABG O2 Saturation 100 % (95-98) H 05/12/18 17:21 PT/INR, D-dimer D-Dimer 412 ng/mLFEU (0-500) 05/12/18 17:11 - Impressions Impressions Chest X-Ray 05/12/18 17:05 IMPRESSION: Edema versus infection. D/ / Lynette Edwards MD / Lynette Edwards MD Interpreting Provider: Lynette Edwards MD Consult Discharge Plan - Plan Referrals: [facility] [Primary Care Provider] - (3) Diabetes Qualifiers: Diabetes mellitus type: type 2 Diabetes mellitus fence rider insulin use: with fence rider use Diabetes mellitus complication status: with unspecified complications Qualified Code(s): E11.8 - Type 2 diabetes mellitus with unspecified complications; Z79.4 - track inspector (current) use of insulin (4) HLD (hyperlipidemia) Qualifiers: Hyperlipidemia type: pure hypercholesterolemia Qualified Code(s): E78.00 - Pure hypercholesterolemia, unspecified; E78.0 - Pure hypercholesterolemia (5) HTN (hypertension) Qualifiers: Hypertension type: essential hypertension Qualified Code(s): I10 - Essential (primary) hypertension
[2018-05-13] MEDS: Aspirin Enteric Coated 81 MG Tablet PO SCH (13:39)
[2018-05-13] MEDS: Insulin DETEMIR 100 UNIT/ML X5UNITS SQ SCH ×2 (13:40→21:29)
[2018-05-13] MEDS: Gabapentin 400 MG CAPSULE PO SCH ×4 (13:40→21:29)
[2018-05-13] MEDS: Furosemide 40 MG TABLET PO SCH (13:40)
[2018-05-13] MEDS: Levofloxacin 750 MG/150 ML 750 MG/150 ML BAG IVPB SCH (13:48)
--- NOTE | 2018-05-13 19:00 | Event Note ---
Date of Encounter: 05/13/18 Time of Encounter: 18:59 patient glucose is >500, I started pre-meal insulin at 20 units, per patient he was on 70 units AC meal, may titrate up tomorrow
[2018-05-14] MEDS: Ipratropium/Albuterol Neb 3 ML IH SCH ×4 (03:11→15:50)
[2018-05-14 04:57] LABS: Basophils # 0.1 K/mcL (0.0-0.2); Basophils % 0.3 %; Eosinophils # 0.1 K/mcL (0.0-0.6); Eosinophils % 0.4 %; Hematocrit 41.9 % (37.5-50.1); Hemoglobin 14.7 g/dL (12.9-16.9); Immature Granulocytes % 1.1 % (0-4); Lymphocytes % 10.8 %; Mean Corpuscular HGB Conc 35.1 g/dL (31.6-35.5); Mean Corpuscular Hemoglobin 28.9 pg (28.0-33.3); Mean Corpuscular Volume 82.5 fL (83.0-100.0); Mean Platelet Volume 10.4 fL (9.4-12.4); Monocytes # 1.3 K/mcL (0.0-1.3); Monocytes % 7.1 %; Neutrophils # 14.5 K/mcL (1.6-8.9); Platelet Count 347 K/mcL (140-400); Red Blood Count 5.08 M/mcL (4.19-5.50); Red Cell Distribution Width 13.5 % (11.5-14.5); Segmented Neutrophils % 80.3 %
[2018-05-14] MEDS: *HR* Heparin 5,000 UNIT/ML VIAL SQ SCH ×2 (05:02→13:15)
[2018-05-14 05:18] LABS: BUN/Creatinine Ratio 26 (6-26); Blood Urea Nitrogen 19 mg/dL (8-23); Calcium 9.1 mg/dL (8.6-10.3); Carbon Dioxide 26 mEq/L (23-29); Chloride 99 mEq/L (98-107); Glucose 299 mg/dL (70-105); Osmolality,Calculated 293 (280-300); Potassium 3.5 mEq/L (3.5-5.1); Sodium 135 mEq/L (136-145); eGFR For Non-African Americans > 60 (> 60)
[2018-05-14] MEDS: Aspirin Enteric Coated 81 MG Tablet PO SCH (08:10)
[2018-05-14] MEDS: Insulin DETEMIR 100 UNIT/ML X5UNITS SQ SCH (08:10)
[2018-05-14] MEDS: Gabapentin 400 MG CAPSULE PO SCH ×2 (08:10→13:05)
[2018-05-14] MEDS: Furosemide 40 MG TABLET PO SCH (08:10)
[2018-05-14] MEDS: Insulin LISPRO 300 UNITS/3 ML VIAL SQ SCH ×6 (08:11→13:04)
[2018-05-14] MEDS: Levofloxacin 750 MG/150 ML 750 MG/150 ML BAG IVPB SCH (08:16)
[2018-05-14] MEDS ORDERED: predniSONE 20 MG TABLET PO SCH (09:00)
[2018-05-14 09:17] LABS: Estimated Average Glucose 220 mg/dl; Hemoglobin A1C 9.3 %
[2018-05-14 11:23] VITALS: BP 129/89
--- NOTE | 2018-05-14 15:54 | Discharge Summary ---
- NOTES TO OUTPATIENT PROVIDER Notes to Outpatient Provider: PCP in 5 to 7 days Date of Encounter: 05/14/18 Time of Encounter: 15:53 - Discharge Diagnosis (1) Acute hypercapnic respiratory failure Priority: Primary Status: Acute Assessment and Plan: Secondary to COPD exacerbation and possible component of SENG/OHS as well. Was on NIPPV, standing nebulizers every 4 hours and systemic steroids. Repeat ABG in the morning whowed some retention. Pt was placed on BiPAP. Also concerned for a possible diastolic heart failure component so he was given furosemide. Results below. Continue on Lasix at home. 6 minute walk test completed and pt's oxygen saturation was 92% on room air with activity, hence he did not qualify for home oxygen. Echo. EV/EV echocardiogram w enhance Impressions: LVEF 55%. Indeterminate diastolic function. Definity echo contrast was used. Mildly dilated RV with normal function. Mild tricuspid regurgitation. Borderline pulmonary hypertension. (2) COPD exacerbation Priority: Primary Status: Acute Assessment and Plan: As indicated above. (3) CAD (coronary artery disease) Priority: Primary Status: Chronic Assessment and Plan: Continue antiplatelet therapy and statin. No signs of acute ischemic disease at this time. Qualifiers: Coronary Disease-Associated Artery/Lesion type: [place] artery [place] vs. transplanted heart: [place] heart Associated angina: without angina Qualified Code(s): I25.10 - Atherosclerotic heart disease of [place] coronary artery without angina pectoris (4) GERD (gastroesophageal reflux disease) Priority: Secondary Status: Chronic Assessment and Plan: Continue PPI. Qualifiers: Esophagitis presence: esophagitis presence not specified Qualified Code(s): K21.9 - Gastro-esophageal reflux disease without esophagitis (5) Diabetes Priority: Secondary Status: Chronic Assessment and Plan: Poorly controlled as evidenced by a hyperglycemic state and likely worsened by steriod therapy. Pt strongly advised on medication compliance. He is to follow up out pt with PCP for diabetic medication adjustment. Hgb A1c results pending and strict glycemic control. 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 Check lipid panel. Qualifiers: Hyperlipidemia type: pure hypercholesterolemia Qualified Code(s): E78.00 - Pure hypercholesterolemia, unspecified; E78.0 - Pure hypercholesterolemia (7) HTN (hypertension) Priority: Secondary Status: Chronic Assessment and Plan: BP better controlled. Will continue home medication. Qualifiers: Hypertension type: essential hypertension Qualified Code(s): I10 - Essential (primary) hypertension Hospital course: Mr. De Paz is a 62 year old male Discharge discussed with: patient - Time Spent with Patient Total time spent providing and/or coordinating discharge services: Greater than 30 minutes - Discharge Medications Home Medications: Aspirin Enteric Coated [Aspirin EC] 81 mg PO DAILY 12/11/15 [History] Gabapentin [Neurontin] 800 mg PO QID 12/11/15 [History] Insulin ASPART [NovoLOG] 70 unit SQ BID 12/11/15 [History] Insulin DETEMIR [Levemir] 70 unit SQ BID 12/11/15 [History] Lovastatin [Mevacor] 20 mg PO HS 03/28/16 [History] Nitroglycerin [Nitrostat] 0.4 mg SL Q5M PRN 03/28/16 [History] Clopidogrel [Plavix] 75 mg PO DAILY #30 tablet 03/29/16 [Rx] Furosemide [Lasix] 40 mg PO DAILY 02/01/17 [History] Metoprolol [Lopressor] 25 mg PO BID 02/01/17 [History] Losartan [Cozaar] 25 mg PO DAILY #30 tablet 04/12/17 [Rx] Ipratropium/Albuterol Sulfate [Combivent Respimat Inhal [place]] 4 gm IH QID #1 mist.inhal 05/14/18 [Rx] Allergies/Adverse Reactions: Allergy/AdvReac Type Severity Reaction Status Date / Time No Known Allergies Allergy Verified 02/01/17 08:57 Date of admission: 05/12/18 20:20 Primary care physician: [facility] Discharging clinician: Katerine Cornejo Anticipated date of discharge: 05/14/18 - Constitutional Vitals: Temp Pulse Resp BP Pulse Ox 98.0 F 84 16 129/89 94 05/14/18 11:23 05/14/18 11:23 05/14/18 11:23 05/14/18 11:23 05/14/18 11:23 General appearance: Present: A&O X 3, no acute distress Exam: . - Head Head exam: Present: atraumatic, normocephalic - Eye Eye exam: Present: PERRL, conjuntiva pink, sclera anicteric Pupils: Present: PERRL - Neck Neck exam general surgery: Present: supple, trachea midline. Absent: lymphadenopathy - Respiratory Respiratory exam: Present: CTAB. Absent: accessory muscle use, rales, rhonchi, wheezes - Cardiovascular Cardiovascular exam: Present: RRR, +S1, +S2. Absent: diastolic murmur, gallop, rubs, systolic murmur - GI/Abdominal GI/Abdominal exam: Present: normal bowel sounds, soft, no peritoneal signs. Absent: distended, tenderness - Extremities Exam Extremities exam: Present: warm, radial pulses palpable and symmetrical. Absent: calf tenderness, cyanotic, pedal edema - Neurological Exam Neurological exam: Present: CN II-XII intact, oriented X3, no focal deficits. Absent: pronater drift, facial droop, speech deficit - Skin Skin exam: Present: dry, intact - Patient Status Disposition: Home, Self-Care Condition: Good Overall status at discharge: patient is back to baseline - Discharge Instructions Follow Up With: [facility] [Primary Care Provider] - (The office of Dr. La Peace is not open today 05/14/18. Patient will need to call and schedule a follow up apt within 5-7 business days. ) - Diet and Activity Activity: increase activity as tolerated Diet: diabetic diet
--- NOTE | 2018-05-15 19:12 | Electrocardiograph Report ---
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
--- NOTE | 2018-05-15 19:13 | Electrocardiograph Report ---
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
== END 2018-05-14 16:33 | disposition home or self-care (01) ==
LOC: 2NENU 16:46 → EMEROOARM 16:46 → SUATTDRO 20:20 → 2NENU 21:08
PROVIDERS: ADMIT Internal Medicine; ATTEND Hospitalist

== ENCOUNTER 2020-01-27 13:02 | Observation (INO) ==
[~2020-01-27 13:02] MED LIST: Bacitracin 50,000 UNIT, Polymyxin B Sulfate 500,000 UNIT, Sodium Chloride IRRigation 1,... IR ONE
[2020-01-27] MEDS ORDERED: Pregabalin 75 MG CAPSULE PO ONE (13:03)
[2020-01-27] MEDS ORDERED: *HR* OxyCODONE Immed Rel 5 MG TABLET PO PRN (13:03)
[2020-01-27] MEDS ORDERED: Acetaminophen IV 1,000 MG/100 ML BAG IVPB ONE (13:03)
[2020-01-27] MEDS ORDERED: *HR* Promethazine 25 MG/ML VIAL IVP PRN (13:03)
[2020-01-27] MEDS ORDERED: *HR* HYDROmorphone 2 MG TABLET PO PRN (13:03)
[2020-01-27] MEDS ORDERED: Famotidine 20 MG/2 ML VIAL IVP ONE (13:03)
[2020-01-27] MEDS ORDERED: *HR* HYDROmorphone (PF) 1 MG/ML SYRINGE IVP PRN (13:03)
[2020-01-27] MEDS ORDERED: *HR* Labetalol 20 MG/4 ML SYRINGE IVP PRN (13:03)
[2020-01-27] MEDS ORDERED: CeFAZolin Syr 2,000MG/20 ML 2,000 MG/20 ML SYRINGE IVPB ONE (13:25)
[2020-01-27] MEDS ORDERED: *HR* FentaNYL (PF) 100 MCG/2 ML VIAL ONE (13:29)
[2020-01-27] MEDS ORDERED: *HR* Propofol 200 MG/20 ML VIAL IVP ONE (13:29)
[2020-01-27] MEDS ORDERED: *HR* Midazolam HCl 2 MG/2 ML VIAL ONE (13:29)
[2020-01-27] MEDS ORDERED: Ringers Solution, Lactated 1,000 ML IVC SCH (13:30)
[2020-01-27] MEDS ORDERED: *HR* Succinylcholine 200 MG/10 ML VIAL IVP ONE (13:35)
[2020-01-27] MEDS ORDERED: Lidocaine -MPF 2% 2 ML VIAL ONE ×2 (13:35→16:58)
[2020-01-27] MEDS ORDERED: *HR* Rocuronium Bromide 50 MG/5 ML VIAL ONE (13:37)
[2020-01-27] MEDS ORDERED: Ondansetron 4 MG/2 ML VIAL ONE (13:37)
[2020-01-27] MEDS ORDERED: Dexamethasone 4 MG/ML VIAL ONE (13:37)
[2020-01-27] MEDS ORDERED: *HR* HYDROMORPHONE 2 MG/ML VIAL ONE ×2 (13:54→16:47)
[2020-01-27] MEDS ORDERED: *HR* PHENYLEPHRINE 1,000 MCG/10 ML SYRINGE IVP ONE (15:51)
[2020-01-27] MEDS ORDERED: Neostigmine Methylsulfate 3 MG/3 ML SYRINGE ONE (16:43)
[2020-01-27] MEDS ORDERED: Ondansetron 4 MG/2 ML VIAL IVP PRN (18:32)
[2020-01-27] MEDS ORDERED: Naloxone 0.4 MG/ML INJ IVP PRN (18:32)
[2020-01-27] MEDS ORDERED: *HR* HYDROcodone/Acet 5/325 mg TABLET PO PRN (18:32)
[2020-01-27] MEDS ORDERED: Acetaminophen 325 MG TABLET PO PRN (18:32)
[2020-01-27] MEDS ORDERED: Nitroglycerin 0.4 MG TAB.SUBL SL PRN (18:32)
[2020-01-27] MEDS ORDERED: *HR* Dextrose 50 % in Water (Vial) 50 ML VIAL IVP PRN (18:37)
[2020-01-27] MEDS ORDERED: Dextrose Gel 15 GM/37.5 ML TUBE PO PRN ×2 (18:37)
[2020-01-27] MEDS ORDERED: D5% in Water 1,000 ML IVC PRN (18:37)
[2020-01-27] MEDS: Gabapentin 400 MG CAPSULE PO SCH (20:47)
[2020-01-27] MEDS ORDERED: NON-FORMULARY MEDICATION 1 EACH EACH (Insulin Detemir 100 UNIT) SQ SCH (21:00)
[2020-01-27] MEDS ORDERED: INSULIN ASPART SQ SCH (21:00)
[2020-01-27] MEDS: Insulin DETEMIR 100 UNIT/ML X5UNITS SQ SCH (21:01)
[2020-01-27] MEDS: CeFAZolin 2 GM/120 ML BAG IVPB SCH (23:54)
[2020-01-28] MEDS: *HR* OxyCODONE Immed Rel 5 MG TABLET PO PRN ×2 (04:54→09:22)
[2020-01-28] MEDS: CeFAZolin 2 GM/120 ML BAG IVPB SCH (06:09)
[2020-01-28] MEDS ORDERED: Aspirin Enteric Coated 81 MG Tablet PO SCH (09:00)
[2020-01-28] MEDS: Insulin DETEMIR 100 UNIT/ML X5UNITS SQ SCH (09:19)
[2020-01-28] MEDS: Insulin LISPRO 300 UNITS/3 ML VIAL SQ SCH ×2 (09:19→14:19)
[2020-01-28] MEDS: Gabapentin 400 MG CAPSULE PO SCH ×2 (09:23→14:18)
[2020-01-28 16:22] VITALS: BP 117/74
== END 2020-01-28 17:36 | disposition home health service (06) ==
LOC: SAMDAY 13:02 → 3NENU 13:02
PROVIDERS: ADMIT Orthopaedic Surgery Orthopaedic Surgery of the Spine; ATTEND Orthopaedic Surgery Orthopaedic Surgery of the Spine

== ENCOUNTER 2020-01-30 22:07 | Inpatient (IN) ==
[2020-01-30] MEDS ORDERED: 0.9 % Sodium Chloride 1,000 ML IV ONE (22:59)
[2020-01-30] MEDS ORDERED: Vancomycin 2,000 MG/520 ML IV.SOLN IVPB ONE (22:59)
[2020-01-30] MEDS ORDERED: Piperacillin/Tazobactam 3.375 GM in 0.9 % Sodium Chloride Mini Bag 100 ML IVPB ONE (22:59)
[2020-01-30 23:09] LABS: Bilirubin,Urine Negative (Negative); Blood,Urine Negative (Negative); Clarity,Urine Clear (Clear); Color,Urine Yellow (Yellow); Glucose,Urine (UA) 500 mg/dL (Normal); Ketones,Urine Negative (Negative); Leukocyte Esterase,Urine Negative (Negative); Mucus,Urine Few per lpf (None-Few); Nitrite,Urine Negative (Negative); Protein,Urine 30 mg/dL (Neg-Trace); Specific Gravity,Urine 1.021 (1.010-1.025); WBC,Urine 0-3 per hpf (0-3)
[2020-01-30] MEDS ORDERED: *HR* FentaNYL (PF) 100 MCG/2 ML VIAL IVP ONE (23:15)
[2020-01-31 00:25] LABS: INR 1.1; Prothrombin Time 12.1 Seconds (9.4-12.1)
[2020-01-31 00:29] LABS: Activated Partial Thrombo Time 27.9 Seconds (26.0-36.0)
[2020-01-31 00:33] LABS: Basophils # 0.1 K/mcL (0.0-0.2); Basophils % 0.7 %; Eosinophils # 0.1 K/mcL (0.0-0.6); Hemoglobin 21.8 g/dL (12.9-16.9); Immature Granulocytes % 1.1 % (0-4); Lymphocytes # 2.2 K/mcL (0.6-4.6); Lymphocytes % 29.4 %; Mean Corpuscular HGB Conc 33.3 g/dL (31.6-35.5); Mean Corpuscular Hemoglobin 27.7 pg (28.0-33.3); Mean Corpuscular Volume 83.2 fL (83.0-100.0); Mean Platelet Volume 10.2 fL (9.4-12.4); Monocytes # 0.3 K/mcL (0.0-1.3); Monocytes % 4.2 %; Neutrophils # 4.7 K/mcL (1.6-8.9); Platelet Count 153 K/mcL (140-400); Red Blood Count 7.87 M/mcL (4.19-5.50); Red Cell Distribution Width 16.3 % (11.5-14.5); Segmented Neutrophils % 63.6 %; White Blood Count 7.4 K/mcL (4.3-11.1)
[2020-01-31 00:34] LABS: Hematocrit 65.5 % (37.5-50.1)
[2020-01-31 00:36] LABS: Alanine Aminotransferase 12 Units/L (7-52); Albumin 3.7 g/dL (3.5-5.7); Albumin/Globulin Ratio 1.3 (1.1-2.2); Alkaline Phosphatase 77 Units/L (34-104); Aspartate Amino Transferase 12 Units/L (13-39); BUN/Creatinine Ratio 14 (6-26); Bilirubin,Direct 0.1 mg/dL (0.0-0.2); Bilirubin,Indirect 0.3 mg/dL (0.0-1.0); Bilirubin,Total 0.4 mg/dL (0.3-1.0); Blood Urea Nitrogen 10 mg/dL (8-23); Calcium 8.4 mg/dL (8.6-10.3); Carbon Dioxide 25 mEq/L (23-29); Chloride 96 mEq/L (98-107); Globulin 2.8 g/dL (2.4-3.5); Glucose 249 mg/dL (70-105); Magnesium 1.2 mg/dL (1.6-2.6); Osmolality,Calculated 283 (280-300); Phosphorous 2.5 mg/dL (2.7-4.5); Potassium 3.3 mEq/L (3.5-5.1); Sodium 133 mEq/L (136-145); Total Protein 6.5 g/dL (6.4-8.9); Troponin I 0.03 ng/mL (< 0.04); eGFR For African Americans > 60 (> 60); eGFR For Non-African Americans > 60 (> 60)
[2020-01-31] MEDS ORDERED: Isovue-370 500 ML BOTTLE IVP ONE (00:54)
[2020-01-31] MEDS ORDERED: *HR* FentaNYL (PF) 100 MCG/2 ML VIAL IVP ONE (06:15)
[2020-01-31 07:31] LABS: Adenovirus Not Detected (Not Detect); Bordetella Pertussis Not Detected (Not Detect); Chlamydophila pneumoniae Not Detected (Not Detect); Coronavirus 229E Not Detected (Not Detect); Coronavirus HKU1 Not Detected (Not Detect); Coronavirus NL63 Not Detected (Not Detect); Coronavirus OC43 Not Detected (Not Detect); Human Rhinovirus/Enterovirus Not Detected (Not Detect); Influenza A Subtype 2009 H1 Not Detected (Not Detect); Influenza B Not Detected (Not Detect); Mycoplasma pneumoniae Not Detected (Not Detect); Parainfluenza Virus 1 Not Detected (Not Detect); Parainfluenza Virus 2 Not Detected (Not Detect); Parainfluenza Virus 3 Not Detected (Not Detect); Parainfluenza Virus 4 Not Detected (Not Detect); Respiratory Syncytial Virus Not Detected (Not Detect); SARS-CoV-2 Not Detected (Not Detect)
[2020-01-31 07:32] LABS: Human Metapneumovirus Not Detected (Not Detect)
[2020-01-31] MEDS ORDERED: Naloxone 0.4 MG/ML INJ IVP PRN (09:12)
[2020-01-31] MEDS ORDERED: Ondansetron 4 MG/2 ML VIAL IVP PRN (09:12)
[2020-01-31] MEDS ORDERED: 0.9 % Sodium Chloride 1,000 ML IVC ONE (09:16)
[2020-01-31] MEDS ORDERED: Potassium Phosphate 44 MEQ in 0.9 % Sodium Chloride 250 ML IVPB ONE (09:18)
[2020-01-31] MEDS ORDERED: Gadolinium Contrast Agent (WT Based) IV PRN (09:20)
[2020-01-31] MEDS ORDERED: *HR* Dextrose 50 % in Water (Vial) 50 ML VIAL IVP PRN (09:44)
[2020-01-31] MEDS ORDERED: D5% in Water 1,000 ML IVC PRN (09:44)
[2020-01-31] MEDS ORDERED: Dextrose Gel 15 GM/37.5 ML TUBE PO PRN ×2 (09:44)
[2020-01-31] MEDS ORDERED: Acetaminophen 325 MG TABLET PO PRN (09:47)
[2020-01-31] MEDS ORDERED: Piperacillin/Tazobactam 3.375 GM in 0.9 % Sodium Chloride Mini Bag 100 ML IVPB SCH (10:00)
[2020-01-31 10:18] LABS: Basophils # 0.1 K/mcL (0.0-0.2); Basophils % 0.8 %; Eosinophils # 0.3 K/mcL (0.0-0.6); Eosinophils % 2.5 %; Hematocrit 35.2 % (37.5-50.1); Immature Granulocytes % 1.1 % (0-4); Lymphocytes % 17.9 %; Mean Corpuscular HGB Conc 34.4 g/dL (31.6-35.5); Mean Corpuscular Hemoglobin 28.9 pg (28.0-33.3); Mean Platelet Volume 9.9 fL (9.4-12.4); Monocytes # 1.2 K/mcL (0.0-1.3); Monocytes % 10.5 %; Neutrophils # 7.5 K/mcL (1.6-8.9); Platelet Count 372 K/mcL (140-400); Red Blood Count 4.19 M/mcL (4.19-5.50); Red Cell Distribution Width 13.4 % (11.5-14.5); Segmented Neutrophils % 67.2 %
[2020-01-31 10:25] LABS: White Blood Count 11.1 K/mcL (4.3-11.1)
[2020-01-31 10:26] LABS: Hemoglobin 12.1 g/dL (12.9-16.9)
[2020-01-31] MEDS: Insulin LISPRO 300 UNITS/3 ML VIAL SQ SCH ×2 (11:57→18:19)
[2020-01-31] MEDS ORDERED: Vancomycin 2,000 MG/520 ML IV.SOLN IVPB SCH (13:00)
[2020-01-31] MEDS: Gabapentin 400 MG CAPSULE PO SCH ×2 (18:18→20:21)
[2020-01-31] MEDS: *HR* Heparin 5,000 UNIT/ML VIAL SQ SCH (18:19)
[2020-01-31] MEDS: Piperacillin/Tazobactam 3.375 GM in 0.9 % Sodium Chloride Mini Bag 100 ML IVPB SCH (20:09)
[2020-01-31] MEDS ORDERED: Insulin LISPRO 300 UNITS/3 ML VIAL SQ SCH (21:00)
[2020-01-31 21:01] LABS: Hematocrit 33.5 % (37.5-50.1); Hemoglobin 11.4 g/dL (12.9-16.9)
[2020-02-01 01:07] LABS: Basophils # 0.1 K/mcL (0.0-0.2); Basophils % 0.9 %; Eosinophils # 0.3 K/mcL (0.0-0.6); Eosinophils % 3.6 %; Hematocrit 33.8 % (37.5-50.1); Hemoglobin 11.3 g/dL (12.9-16.9); Lymphocytes # 2.2 K/mcL (0.6-4.6); Lymphocytes % 22.9 %; Mean Corpuscular HGB Conc 33.4 g/dL (31.6-35.5); Mean Corpuscular Volume 83.9 fL (83.0-100.0); Mean Platelet Volume 10.2 fL (9.4-12.4); Monocytes % 10.3 %; Neutrophils # 5.9 K/mcL (1.6-8.9); Nucleated Red Blood Cells 0.2 /100 WBC (0); Platelet Count 361 K/mcL (140-400); Red Blood Count 4.03 M/mcL (4.19-5.50); Red Cell Distribution Width 13.2 % (11.5-14.5); Segmented Neutrophils % 61.3 %; White Blood Count 9.5 K/mcL (4.3-11.1)
[2020-02-01 01:26] LABS: BUN/Creatinine Ratio 14 (6-26); Blood Urea Nitrogen 8 mg/dL (8-23); Calcium 7.6 mg/dL (8.6-10.3); Carbon Dioxide 22 mEq/L (23-29); Chloride 100 mEq/L (98-107); Glucose 200 mg/dL (70-105); Magnesium 1.4 mg/dL (1.6-2.6); Osmolality,Calculated 280 (280-300); Phosphorous 3.5 mg/dL (2.7-4.5); Potassium 3.4 mEq/L (3.5-5.1); Sodium 133 mEq/L (136-145); eGFR For African Americans > 60 (> 60); eGFR For Non-African Americans > 60 (> 60)
[2020-02-01] MEDS: Piperacillin/Tazobactam 3.375 GM in 0.9 % Sodium Chloride Mini Bag 100 ML IVPB SCH ×3 (04:11→20:05)
[2020-02-01] MEDS: *HR* Heparin 5,000 UNIT/ML VIAL SQ SCH ×2 (05:21→17:47)
[2020-02-01] MEDS ORDERED: Vancomycin 2,000 MG/520 ML IV.SOLN IVPB SCH ×2 (06:00→17:00)
[2020-02-01] MEDS ORDERED: Insulin LISPRO 300 UNITS/3 ML VIAL SQ SCH (07:30)
[2020-02-01] MEDS: Gabapentin 400 MG CAPSULE PO SCH ×3 (07:52→20:05)
[2020-02-01] MEDS: Aspirin Enteric Coated 81 MG Tablet PO SCH (07:52)
[2020-02-01] MEDS: Insulin LISPRO 300 UNITS/3 ML VIAL SQ SCH ×3 (12:35→20:05)
[2020-02-01] MEDS: Vancomycin 2,000 MG/520 ML IV.SOLN IVPB SCH (17:47)
[2020-02-02] MEDS: Vancomycin 2,000 MG/520 ML IV.SOLN IVPB SCH ×3 (01:59→18:10)
[2020-02-02 02:29] LABS: Basophils # 0.1 K/mcL (0.0-0.2); Basophils % 0.7 %; Eosinophils # 0.5 K/mcL (0.0-0.6); Hematocrit 32.8 % (37.5-50.1); Hemoglobin 11.3 g/dL (12.9-16.9); Immature Granulocytes % 0.9 % (0-4); Lymphocytes # 1.8 K/mcL (0.6-4.6); Lymphocytes % 17.5 %; Mean Corpuscular HGB Conc 34.5 g/dL (31.6-35.5); Mean Corpuscular Volume 84.1 fL (83.0-100.0); Mean Platelet Volume 9.6 fL (9.4-12.4); Monocytes % 9.4 %; Platelet Count 347 K/mcL (140-400); Segmented Neutrophils % 66.5 %; White Blood Count 10.5 K/mcL (4.3-11.1)
[2020-02-02 02:43] LABS: BUN/Creatinine Ratio 11 (6-26); Blood Urea Nitrogen 7 mg/dL (8-23); Carbon Dioxide 25 mEq/L (23-29); Chloride 99 mEq/L (98-107); Glucose 247 mg/dL (70-105); Osmolality,Calculated 278 (280-300); Potassium 3.9 mEq/L (3.5-5.1); Sodium 131 mEq/L (136-145); eGFR For African Americans > 60 (> 60); eGFR For Non-African Americans > 60 (> 60)
[2020-02-02] MEDS: Piperacillin/Tazobactam 3.375 GM in 0.9 % Sodium Chloride Mini Bag 100 ML IVPB SCH ×3 (04:04→20:17)
[2020-02-02] MEDS: *HR* Heparin 5,000 UNIT/ML VIAL SQ SCH ×2 (04:04→18:11)
[2020-02-02] MEDS: Insulin LISPRO 300 UNITS/3 ML VIAL SQ SCH ×4 (08:23→20:27)
[2020-02-02] MEDS: Aspirin Enteric Coated 81 MG Tablet PO SCH (08:24)
[2020-02-02] MEDS: Gabapentin 400 MG CAPSULE PO SCH ×3 (09:52→20:17)
[2020-02-02] MEDS ORDERED: *HR* OxyCODONE Immed Rel 5 MG TABLET PO ONE (21:48)
[2020-02-03] MEDS ORDERED: *HR* HYDROmorphone 2 MG TABLET PO ONE (00:14)
[2020-02-03 00:26] LABS: Basophils # 0.1 K/mcL (0.0-0.2); Basophils % 0.7 %; Eosinophils # 0.5 K/mcL (0.0-0.6); Eosinophils % 4.7 %; Hematocrit 36.5 % (37.5-50.1); Hemoglobin 12.4 g/dL (12.9-16.9); Immature Granulocytes % 1.1 % (0-4); Lymphocytes # 1.7 K/mcL (0.6-4.6); Lymphocytes % 14.6 %; Mean Corpuscular Hemoglobin 28.1 pg (28.0-33.3); Mean Corpuscular Volume 82.8 fL (83.0-100.0); Mean Platelet Volume 9.8 fL (9.4-12.4); Monocytes # 0.9 K/mcL (0.0-1.3); Neutrophils # 8.2 K/mcL (1.6-8.9); Platelet Count 453 K/mcL (140-400); Red Blood Count 4.41 M/mcL (4.19-5.50); Red Cell Distribution Width 13.2 % (11.5-14.5); Segmented Neutrophils % 70.9 %; White Blood Count 11.6 K/mcL (4.3-11.1)
[2020-02-03 00:34] LABS: BUN/Creatinine Ratio 11 (6-26); Blood Urea Nitrogen 9 mg/dL (8-23); Calcium 8.6 mg/dL (8.6-10.3); Carbon Dioxide 25 mEq/L (23-29); Chloride 97 mEq/L (98-107); Glucose 317 mg/dL (70-105); Osmolality,Calculated 281 (280-300); Potassium 4.1 mEq/L (3.5-5.1); Sodium 130 mEq/L (136-145); eGFR For African Americans > 60 (> 60); eGFR For Non-African Americans > 60 (> 60)
[2020-02-03] MEDS: Insulin DETEMIR 100 UNIT/ML X5UNITS SQ SCH ×2 (00:37→08:00)
[2020-02-03] MEDS: Vancomycin 2,000 MG/520 ML IV.SOLN IVPB SCH (01:32)
[2020-02-03] MEDS ORDERED: tiZANidine 4 MG TABLET PO ONE (01:38)
[2020-02-03] MEDS: Piperacillin/Tazobactam 3.375 GM in 0.9 % Sodium Chloride Mini Bag 100 ML IVPB SCH (03:40)
[2020-02-03] MEDS: *HR* Heparin 5,000 UNIT/ML VIAL SQ SCH (05:39)
[2020-02-03] MEDS: Aspirin Enteric Coated 81 MG Tablet PO SCH (07:59)
[2020-02-03] MEDS: Gabapentin 400 MG CAPSULE PO SCH (07:59)
[2020-02-03] MEDS: Insulin LISPRO 300 UNITS/3 ML VIAL SQ SCH (07:59)
[2020-02-03] MEDS ORDERED: Vancomycin 1,500 MG/265 ML IV.SOLN IVPB SCH (09:30)
[2020-02-03 11:14] VITALS: BP 107/68
[2020-02-03] MEDS ORDERED: Aminoglycoside Consult 1 EACH MC ONE (13:34)
== END 2020-02-03 13:35 | disposition home or self-care (01) | DRG 871 ==
LOC: EMEROOARM 22:07 → 3NENU 22:07
PROVIDERS: ADMIT Family Medicine; ATTEND Family Medicine

== ENCOUNTER 2020-02-04 09:51 | Inpatient (IN) ==
[2020-02-04] MEDS ORDERED: Acetaminophen 325 MG TABLET PO PRN (10:50)
[2020-02-04] MEDS ORDERED: Ondansetron 4 MG/2 ML VIAL IVP PRN (10:50)
[2020-02-04] MEDS ORDERED: Naloxone 0.4 MG/ML INJ IVP PRN (10:50)
[2020-02-04 12:19] LABS: INR 1.2; Prothrombin Time 13.1 Seconds (9.4-12.1)
[2020-02-04 12:20] LABS: Basophils # 0.1 K/mcL (0.0-0.2); Basophils % 0.6 %; Eosinophils # 0.3 K/mcL (0.0-0.6); Eosinophils % 2.2 %; Hematocrit 39.7 % (37.5-50.1); Hemoglobin 13.4 g/dL (12.9-16.9); Immature Granulocytes % 1.3 % (0-4); Lymphocytes # 1.6 K/mcL (0.6-4.6); Lymphocytes % 13.3 %; Mean Corpuscular HGB Conc 33.8 g/dL (31.6-35.5); Mean Corpuscular Hemoglobin 28.6 pg (28.0-33.3); Mean Corpuscular Volume 84.6 fL (83.0-100.0); Mean Platelet Volume 9.8 fL (9.4-12.4); Monocytes # 0.7 K/mcL (0.0-1.3); Monocytes % 5.6 %; Neutrophils # 9.5 K/mcL (1.6-8.9); Platelet Count 568 K/mcL (140-400); Red Blood Count 4.69 M/mcL (4.19-5.50); Red Cell Distribution Width 13.4 % (11.5-14.5); White Blood Count 12.3 K/mcL (4.3-11.1)
[2020-02-04 12:22] LABS: Activated Partial Thrombo Time 33.7 Seconds (26.0-36.0)
[2020-02-04 12:34] LABS: Alanine Aminotransferase 21 Units/L (7-52); Albumin 3.9 g/dL (3.5-5.7); Albumin/Globulin Ratio 1.1 (1.1-2.2); Alkaline Phosphatase 128 Units/L (34-104); Aspartate Amino Transferase 14 Units/L (13-39); BUN/Creatinine Ratio 13 (6-26); Bilirubin,Total 0.5 mg/dL (0.3-1.0); Blood Urea Nitrogen 9 mg/dL (8-23); Calcium 9.3 mg/dL (8.6-10.3); Carbon Dioxide 24 mEq/L (23-29); Chloride 98 mEq/L (98-107); Globulin 3.6 g/dL (2.4-3.5); Glucose 134 mg/dL (70-105); Osmolality,Calculated 281 (280-300); Potassium 3.5 mEq/L (3.5-5.1); Sodium 135 mEq/L (136-145); Total Protein 7.5 g/dL (6.4-8.9); eGFR For African Americans > 60 (> 60); eGFR For Non-African Americans > 60 (> 60)
[2020-02-04] MEDS ORDERED: Ipratropium/Albuterol Neb 3 ML IH PRN (13:09)
[2020-02-04] MEDS: Insulin LISPRO 300 UNITS/3 ML VIAL SQ SCH ×3 (13:13→20:45)
[2020-02-04] MEDS ORDERED: Nitroglycerin 0.4 MG TAB.SUBL SL PRN (13:20)
[2020-02-04 13:21] LABS: Magnesium 1.6 mg/dL (1.6-2.6); Phosphorous 4.1 mg/dL (2.7-4.5)
[2020-02-04] MEDS: Gabapentin 400 MG CAPSULE PO SCH ×2 (15:05→20:41)
[2020-02-04] MEDS: *HR* OxyCODONE Immed Rel 5 MG TABLET PO PRN ×2 (15:06→21:17)
[2020-02-04 15:24] LABS: C-Reactive Protein 88 mg/L (Less than 10)
[2020-02-04] MEDS: Insulin DETEMIR 100 UNIT/ML X5UNITS SQ SCH (20:42)
[2020-02-05] MEDS: Insulin LISPRO 300 UNITS/3 ML VIAL SQ SCH ×4 (08:31→20:27)
[2020-02-05] MEDS: Insulin DETEMIR 100 UNIT/ML X5UNITS SQ SCH ×2 (08:32→20:20)
[2020-02-05] MEDS: Gabapentin 400 MG CAPSULE PO SCH ×3 (08:33→20:16)
[2020-02-05] MEDS: *HR* OxyCODONE Immed Rel 5 MG TABLET PO PRN ×2 (08:33→15:21)
[2020-02-05] MEDS: tiZANidine 4 MG TABLET PO PRN (12:56)
[2020-02-06] MEDS: *HR* OxyCODONE Immed Rel 5 MG TABLET PO PRN ×3 (02:49→12:51)
[2020-02-06 05:56] LABS: Basophils # 0.1 K/mcL (0.0-0.2); Basophils % 0.7 %; Eosinophils # 0.4 K/mcL (0.0-0.6); Eosinophils % 4.3 %; Hematocrit 38.3 % (37.5-50.1); Hemoglobin 13.1 g/dL (12.9-16.9); Immature Granulocytes % 1.1 % (0-4); Lymphocytes # 1.7 K/mcL (0.6-4.6); Mean Corpuscular HGB Conc 34.2 g/dL (31.6-35.5); Mean Corpuscular Hemoglobin 28.9 pg (28.0-33.3); Mean Corpuscular Volume 84.4 fL (83.0-100.0); Mean Platelet Volume 9.3 fL (9.4-12.4); Monocytes # 0.7 K/mcL (0.0-1.3); Monocytes % 6.8 %; Neutrophils # 6.9 K/mcL (1.6-8.9); Platelet Count 542 K/mcL (140-400); Red Blood Count 4.54 M/mcL (4.19-5.50); Red Cell Distribution Width 13.2 % (11.5-14.5); Segmented Neutrophils % 70.1 %; White Blood Count 9.9 K/mcL (4.3-11.1)
[2020-02-06] MEDS ORDERED: Bacitracin 50,000 UNIT, Polymyxin B Sulfate 500,000 UNIT, Sodium Chloride IRRigation 1,... IR ONE (06:00)
[2020-02-06] MEDS: tiZANidine 4 MG TABLET PO PRN ×2 (06:01→15:23)
[2020-02-06 06:19] LABS: BUN/Creatinine Ratio 15 (6-26); Blood Urea Nitrogen 9 mg/dL (8-23); Carbon Dioxide 25 mEq/L (23-29); Chloride 103 mEq/L (98-107); Glucose 122 mg/dL (70-105); Osmolality,Calculated 284 (280-300); Potassium 3.8 mEq/L (3.5-5.1); Sodium 137 mEq/L (136-145); eGFR For African Americans > 60 (> 60); eGFR For Non-African Americans > 60 (> 60)
[2020-02-06] MEDS: Gabapentin 400 MG CAPSULE PO SCH ×2 (08:49→15:18)
[2020-02-06] MEDS: Insulin LISPRO 300 UNITS/3 ML VIAL SQ SCH ×2 (08:50→12:44)
[2020-02-06] MEDS ORDERED: Acetaminophen/Butalbital/CaffeineTABLET PO PRN (10:47)
[2020-02-06] MEDS ORDERED: *HR* OxyCODONE Immed Rel 5 MG TABLET PO PRN (16:11)
[2020-02-06] MEDS ORDERED: Ondansetron 4 MG/2 ML VIAL IVP ONE (16:11)
[2020-02-06] MEDS ORDERED: *HR* HYDROmorphone PF 0.5 MG/0.5 ML SYRINGE IVP PRN (16:11)
[2020-02-06] MEDS ORDERED: *HR* Promethazine 25 MG/ML VIAL IVP PRN (16:11)
[2020-02-06] MEDS ORDERED: *HR* Succinylcholine 200 MG/10 ML VIAL IVP ONE (16:53)
[2020-02-06] MEDS ORDERED: Lidocaine -MPF 2% 2 ML VIAL ONE (16:53)
[2020-02-06] MEDS ORDERED: *HR* FentaNYL (PF) 100 MCG/2 ML VIAL ONE ×2 (16:53→17:08)
[2020-02-06] MEDS ORDERED: *HR* PHENYLEPHRINE 1,000 MCG/10 ML SYRINGE IVP ONE (17:15)
[2020-02-06] MEDS ORDERED: Dexamethasone 4 MG/ML VIAL ONE (17:28)
[2020-02-06] MEDS ORDERED: Ondansetron 4 MG/2 ML VIAL ONE (17:28)
[2020-02-06] MEDS ORDERED: *HR* HYDROcodone/Acet 5/325 mg TABLET PO PRN (20:37)
[2020-02-06] MEDS ORDERED: Naloxone 0.4 MG/ML INJ IVP PRN (20:37)
[2020-02-06] MEDS ORDERED: Ondansetron 4 MG/2 ML VIAL IVP PRN (20:37)
[2020-02-06] MEDS ORDERED: Ibuprofen 400 MG TABLET PO PRN (20:37)
[2020-02-06] MEDS ORDERED: Insulin DETEMIR 100 UNIT/ML X5UNITS SQ SCH (21:00)
[2020-02-07] MEDS: CeFAZolin 2 GM/120 ML BAG IVPB SCH ×2 (00:02→08:37)
[2020-02-07] MEDS: *HR* OxyCODONE Immed Rel 5 MG TABLET PO PRN ×2 (00:15→08:42)
[2020-02-07] MEDS ORDERED: Insulin DETEMIR 100 UNIT/ML X5UNITS SQ SCH (01:00)
[2020-02-07] MEDS: Insulin DETEMIR 100 UNIT/ML X5UNITS SQ SCH ×2 (01:48→08:37)
[2020-02-07 07:07] VITALS: BP 117/71
[2020-02-07] MEDS ORDERED: Dextrose Gel 15 GM/37.5 ML TUBE PO PRN ×2 (07:56)
[2020-02-07] MEDS ORDERED: *HR* Dextrose 50 % in Water (Vial) 50 ML VIAL IVP PRN (07:56)
[2020-02-07] MEDS ORDERED: D5% in Water 1,000 ML IVC PRN (07:56)
[2020-02-07] MEDS ORDERED: Insulin LISPRO 300 UNITS/3 ML VIAL SQ SCH ×3 (08:00→21:00)
[2020-02-07] MEDS ORDERED: Gabapentin 400 MG CAPSULE PO SCH (09:00)
[2020-02-07 09:07] LABS: Basophils # 0.1 K/mcL (0.0-0.2); Basophils % 0.5 %; Eosinophils # 0.2 K/mcL (0.0-0.6); Eosinophils % 1.4 %; Hematocrit 37.5 % (37.5-50.1); Hemoglobin 12.5 g/dL (12.9-16.9); Immature Granulocytes % 0.9 % (0-4); Lymphocytes % 15.1 %; Mean Corpuscular HGB Conc 33.3 g/dL (31.6-35.5); Mean Corpuscular Hemoglobin 27.7 pg (28.0-33.3); Mean Platelet Volume 9.6 fL (9.4-12.4); Monocytes # 0.7 K/mcL (0.0-1.3); Monocytes % 5.4 %; Platelet Count 583 K/mcL (140-400); Red Blood Count 4.52 M/mcL (4.19-5.50); Red Cell Distribution Width 13.2 % (11.5-14.5); Segmented Neutrophils % 76.7 %; White Blood Count 13.1 K/mcL (4.3-11.1)
[2020-02-07 09:25] LABS: BUN/Creatinine Ratio 16 (6-26); Blood Urea Nitrogen 11 mg/dL (8-23); Calcium 9.1 mg/dL (8.6-10.3); Carbon Dioxide 29 mEq/L (23-29); Chloride 96 mEq/L (98-107); Glucose 343 mg/dL (70-105); Osmolality,Calculated 289 (280-300); Potassium 4.4 mEq/L (3.5-5.1); Sodium 133 mEq/L (136-145); eGFR For African Americans > 60 (> 60); eGFR For Non-African Americans > 60 (> 60)
== END 2020-02-07 10:53 | disposition home or self-care (01) | DRG 908 ==
LOC: 3NENU
PROVIDERS: ADMIT Orthopaedic Surgery Orthopaedic Surgery of the Spine; ATTEND Orthopaedic Surgery Orthopaedic Surgery of the Spine